=== PATIENT | female | born 1930 | race Caucasian/White ===

== ENCOUNTER 2017-06-22 14:26 | Outpatient (CLI) | payer MEDICARE | END 2017-06-22 14:27 | disposition home or self-care (01) | LOC: BICULT 14:26 | PROVIDERS: ATTEND Internal Medicine Nephrology | DX: I12.9 Hypertensive chronic kidney disease with stage 1 through stage 4 chronic kidney disease, or unspecified chronic kidney disease (principal); N18.2 Chronic kidney disease, stage 2 (mild); N28.1 Cyst of kidney, acquired | CPT/HCPCS: 76700; 76770 ==

== ENCOUNTER 2017-06-29 12:37 | Outpatient (CLI) | payer MEDICARE | END 2017-06-29 12:38 | disposition home or self-care (01) | LOC: BICMAMMO 12:37 | PROVIDERS: ATTEND Internal Medicine | DX: Z12.31 Encounter for screening mammogram for malignant neoplasm of breast (principal) | CPT/HCPCS: 77063; 77067 ==

== ENCOUNTER 2017-07-19 10:45 | Emergency (ER) | payer MEDICARE ==
[2017-07-19] MEDS ORDERED: Acetaminophen 325 MG TAB ONE (12:05)
[2017-07-19] MEDS ORDERED: ISOVUE-370 76%-LOCM 1 ML ONE (12:12)
[2017-07-19 12:24] LABS: #Eosinphils 0.1 thou/uL (0.0-0.7); #Lymphocytes 1.8 thou/uL (1.20-3.40); #Monocytes 0.9 thou/uL (0.11-0.59); #Neutrophils 7.4 thou/uL (1.40-6.50); %Basophils 0.1 % (0.0-1.0); %Eosinophils 0.8 % (0.0-10.0); %Monocytes 8.7 % (0.0-10.0); %Neutrophils 72.4 % (42.0-75.0); Hemoglobin 10.8 g/dL (12.0-16.0); Mean Corpuscular HGB CONC 32.1 g/dL (32.0-36.0); Mean Corpuscular Hemoglobin 26.1 pg (27.0-31.0); Mean Corpuscular Volume 81.3 fl (81.0-99.0); Mean Platelet Volume 6.4 fL (7.4-10.4); Platelet Count 326 thou/uL (130-400); RBC Distribution Width 16.2 % (11.5-14.5); Red Blood Cell (RBC) Count 4.13 mill/uL (4.20-5.40); White Blood Cell (WBC) Count 10.2 thou/uL (4.8-10.8)
[2017-07-19 12:39] LABS: Bilirubin Negative (Negative); Blood, Urine Negative (Negative); Clarity CLEAR (Clear); Glucose, Urine (Dipstick) Negative (Negative); Leukocyte Moderate (Negative); Nitrite Negative (Negative); Protein, Urine (Dipstick) Negative (Neg-Trace); Urobilinogen 0.2 mg/dL (0.2-1.0); pH, Urine 7.5 (5.0-9.0)
[2017-07-19 12:41] LABS: Bacteria/HPF Rare-Few HPF (None Seen); Hyaline Casts/LPF 0-3 HYALINE CAST LPF (0-3 Hyaline); Pathc Cast-AUWi Flag 0.43 (0-2.49); RBC/HPF 0-3 HPF (0-3); Squamous Epithelial 0-3 HPF (0-3)
[2017-07-19 12:50] LABS: ALT (SGPT) 8 U/L (8-55); AST (SGOT) 12 U/L (5-34); Albumin 3.8 g/dL (3.4-4.8); Alkaline Phosphatase 87 U/L (40-150); Anion Gap 13 mmol/L (10-20); BUN (Urea Nitrogen) 11 mg/dL (9.8-20.1); Bilirubin, Total 0.4 mg/dL (0.2-1.2); Calc. Creatinine Clearance 0 mL/min (70-130); Calcium 9.3 mg/dL (7.8-10.44); Carbon Dioxide 27 mmol/L (23-31); Chloride 100 mmol/L (98-107); Estimated GFR-MDRD 85; Globulin 2.7 g/dL (2.4-3.5); Glucose 99 mg/dL (83-110); Lipase 9 U/L (8-78); Potassium 3.9 mmol/L (3.5-5.1); Protein, Total 6.5 g/dL (6.0-8.3); Sodium 136 mmol/L (136-145)
[2017-07-19] MEDS ORDERED: cefTRIAXone\\ROCEPHIN 1 GM VIAL ONE (13:23)
--- NOTE | 2017-07-19 14:08 | CT ---
CT ABDOMEN AND PELVIS WITH CONTRAST: Comparison: None. History: Left flank pain that started this morning. Technique: Multiple contiguous axial images were obtained in a CT of the abdomen and pelvis with cont rast. Coronal reformats were performed. FINDINGS: There are hypodensities in the liver measuring up to 1.8 cm in size which likely represent cysts. Hyp odensities are also seen in the kidneys which likely represents cysts. There is mild prominence of th e proximal right ureter without caliceal dilatation. No left sided hydronephrosis is seen. No calcifi cation is seen in either kidney or along the course of the ureters. There is a calcification within a venous structure adjacent to the right ureter on image 49 of 95. The ureter is just lateral to this calcification. There is scattered diverticula in the colon. The small bowel is unremarkable. No abdominal or pelvic lymphadenopathy are seen. Atherosclerotic calcifications are seen in the aorta. Degenerative changes are seen in the spine. Atelectasis is seen in the lung bases. The lateral wall s oft tissues are unremarkable. There is a spinal stimulation device with the tip in the thoracic spine . IMPRESSION: 1. No evidence of acute intraabdominal/pelvic abnormality. 2. Hepatic cysts. 3. Renal cysts. 4. Scattered diverticulosis in the colon. The small bowel is unremarkable. POS: [facility]
== END 2017-07-19 14:56 | disposition home or self-care (01) ==
LOC: ERS 10:45
DX: N39.0 Urinary tract infection, site not specified (principal); E78.5 Hyperlipidemia, unspecified; I10 Essential (primary) hypertension; J44.9 Chronic obstructive pulmonary disease, unspecified; Z87.891 Personal history of nicotine dependence
CPT/HCPCS: 36415; 74177; 80053; 81003; 81015; 83605; 83690; 85025; 87086; 96361; 96365; J0696

== ENCOUNTER 2017-12-19 01:39 | Inpatient (IN) | payer MEDICARE ==
[2017-12-19 02:17] LABS: #Basophils 0.1 thou/uL (0.0-0.2); #Eosinphils 0.3 thou/uL (0.0-0.7); #Lymphocytes 2.9 thou/uL (1.20-3.40); #Monocytes 0.7 thou/uL (0.11-0.59); #Neutrophils 9.3 thou/uL (1.40-6.50); %Basophils 0.5 % (0.0-1.0); %Eosinophils 2.3 % (0.0-10.0); %Monocytes 5.1 % (0.0-10.0); Hemoglobin 11.2 g/dL (12.0-16.0); Mean Corpuscular Hemoglobin 25.4 pg (27.0-31.0); Mean Platelet Volume 6.6 fL (7.4-10.4); Platelet Count 493 thou/uL (130-400); RBC Distribution Width 15.6 % (11.5-14.5); Red Blood Cell (RBC) Count 4.39 mill/uL (4.20-5.40); White Blood Cell (WBC) Count 13.3 thou/uL (4.8-10.8)
[2017-12-19 02:39] LABS: ALT (SGPT) 11 U/L (8-55); AST (SGOT) 18 U/L (5-34); Albumin 3.6 g/dL (3.4-4.8); Alkaline Phosphatase 94 U/L (40-150); Anion Gap 15 mmol/L (10-20); BUN (Urea Nitrogen) 17 mg/dL (9.8-20.1); Bilirubin, Total 0.3 mg/dL (0.2-1.2); Calc. Creatinine Clearance 0 mL/min (70-130); Calcium 9.4 mg/dL (7.8-10.44); Carbon Dioxide 22 mmol/L (23-31); Chloride 102 mmol/L (98-107); Estimated GFR-MDRD 48; Globulin 2.9 g/dL (2.4-3.5); Glucose 157 mg/dL (83-110); Lipase 43 U/L (8-78); Potassium 3.6 mmol/L (3.5-5.1); Protein, Total 6.5 g/dL (6.0-8.3); Sodium 135 mmol/L (136-145)
[2017-12-19 02:41] LABS: Troponin I Less than 0.010 ng/mL (< 0.028)
[2017-12-19 03:03] LABS: Bilirubin Negative (Negative); Blood, Urine Negative (Negative); Clarity CLEAR (Clear); Glucose, Urine (Dipstick) Negative (Negative); Leukocyte Small (Negative); Nitrite Negative (Negative); Protein, Urine (Dipstick) Trace mg/dL (Neg-Trace); Specific Gravity, Urine 1.016 (1.002-1.036); Urobilinogen 0.2 mg/dL (0.2-1.0); pH, Urine 7.5 (5.0-9.0)
[2017-12-19 03:05] LABS: Bacteria/HPF 3+ HPF (None Seen); Hyaline Casts/LPF 0-3 HYALINE CAST LPF (0-3 Hyaline); Pathc Cast-AUWi Flag 0.14 (0-2.49); RBC/HPF 0-3 HPF (0-3); Squamous Epithelial 0-3 HPF (0-3)
[2017-12-19] MEDS ORDERED: Nitrofurantoin Macrocrystal 50 MG CAP PO SCH (03:45)
[2017-12-19] MEDS ORDERED: cefTRIAXone\\ROCEPHIN 2 GM VIAL ONE (04:04)
[2017-12-19] MEDS ORDERED: metroNIDAZOLE 500 MG/100 ML BAG ONE (04:18)
[2017-12-19] MEDS ORDERED: traMADol HCl 50 MG TAB ONE (04:32)
[2017-12-19 04:43] LABS: Lactic Acid 2.5 mmol/L (0.5-2.2)
[2017-12-19] MEDS ORDERED: Acetaminophen 325 MG TAB PO PRN ×2 (05:56→08:05)
[2017-12-19] MEDS ORDERED: Ondansetron ODT 4 MG TAB SL PRN (05:56)
[2017-12-19] MEDS ORDERED: Ondansetron HCl/PF 4 MG/2 ML Vial IVP PRN ×2 (05:56→08:05)
[2017-12-19 06:23] VITALS: BMI 23.8
[2017-12-19] MEDS ORDERED: Senokot S 8.6-50 MG TAB PO PRN (08:05)
[2017-12-19] MEDS ORDERED: Calcium Carbonate 500 MG ChewTAB PO PRN (08:05)
[2017-12-19] MEDS ORDERED: Diabetic Tussin 200 MG/10 ML UDCUP PO PRN (08:05)
[2017-12-19] MEDS ORDERED: Sodium Chloride 0.65% Nasal 44 ML BOT EA NARE PRN (08:05)
[2017-12-19] MEDS ORDERED: Eucerin (Mineral Oil/Petrolatum,White) 30 gm Jar TOP PRN (08:05)
[2017-12-19] MEDS ORDERED: Loperamide HCl 2 MG CAP PO PRN (08:05)
[2017-12-19] MEDS ORDERED: hydrALAZINE 20 MG/ML VIAL SLOW IVP PRN (08:05)
[2017-12-19] MEDS ORDERED: Bisacodyl 5 MG TAB PO PRN (08:05)
[2017-12-19] MEDS ORDERED: Bisacodyl 10 MG SUPP PR PRN (08:05)
[2017-12-19] MEDS ORDERED: Ondansetron ODT 4 MG TAB PO PRN (08:05)
[2017-12-19] MEDS ORDERED: Artificial Tears 18 DROP/0.9 ML EA EYE PRN (08:05)
[2017-12-19] MEDS ORDERED: Zolpidem Tartrate 5 MG TAB PO PRN (08:05)
[2017-12-19] MEDS ORDERED: Sodium Chloride 0.9% 1,000 ML IV SCH (08:15)
--- NOTE | 2017-12-19 08:52 | CT ---
PRELIMINARY REPORT/[facility]/EMERGENTY AFTER-HOURS PROCEDURE CT Abdomen and Pelvis With Intravenous Contrast EXAM DATE/TIME: 12/19/2017 3:06 AM CLINICAL HISTORY: 87 years old, female; Pain; Abdominal pain; Generalized; Patient HX: History obtained from ems, f86 p resents to ed via ems for abdominal cramping and difficulty having a bm tonight. Per ems, PT was foun d on the toilet and complained of being unable to have a bm. PT states she called ems because her abdominal pain made her scared to get up from the toilet. Denies nausea, vomiting, dysuria. PT al so reports that her urine has been dark. 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 HX HTN, diabetes. TECHNIQUE: Axial computed tomography images of the abdomen and pelvis with intravenous contrast. Coronal reformatted images were created and reviewed. COMPARISON: No relevant prior studies available. FINDINGS: Tubes, catheters and devices: Spinal stimulator. Lower thorax: Small paraesophageal hiatal hernia. ABDOMEN: Liver: 1.4 cm and couple of subcentimeter nonspecific low attenuation lesions in the right hepatic lo be. Gallbladder and bile ducts: Unremarkable. Pancreas: Unremarkable. Spleen: Unremarkable. Adrenals: Unremarkable. Kidneys and ureters: 1 cm cyst and couple of bilateral low attenuation lesions too small to character ize. Couple of probable small vascular calcifications. Symmetric nephrograms. No hydronephrosis. Stomach and bowel: Diverticulosis. Fluid-filled ascending and transverse colon with relatively promin ent mucosal enhancement. No significant surrounding inflammatory changes noted. No evidence of obstru ction. Appendix: No evidence of appendicitis. PELVIS: Bladder: Unremarkable as visualized. Reproductive: Hysterectomy. ABDOMEN and PELVIS: Intraperitoneal space: No significant fluid collection. No free air. Bones/joints: Total left hip arthroplasty. Levoscoliosis and diffuse spondylosis and facet arthrosis. Soft tissues: Unremarkable. Vasculature: Dense atherosclerotic calcifications. Lymph nodes: No enlarged lymph nodes. IMPRESSION: Fluid filled proximal colon with relative mucosal prominence may represent mild colitis. Thank you for allowing us to participate in the care of your patient. Dictated and Authenticated by: Chandan Montenegro MD 12/19/2017 3:52 AM Central Time ([place] & [place]) FINAL REPORT EMERGENCY AFTER HOURS CT ABDOMEN AND PELVIS: Date: 12/19/17 FINDINGS/IMPRESSION: I agree with the preliminary report provided by [facility]. 1. There is wall thickening and fluid density seen within portions of the hepatic flexure, transvers e colon, and splenic flexure, suspicious for a colitis. This can be related to an infectious, inflamm atory, or ischemic etiology. 2. Stable hypodensities within the liver most suspicious for cysts. Stable hypodensities within the kidneys most suspicious for small cysts. No drainable fluid collection is evident. 3. Colonic diverticulosis. 4. Bibasilar atelectasis. 5. Dorsal column stimulator. 6. Left total hip replacement. 7. Severe levoscoliosis of the lumbar spine with diffuse osteopenia. POS: [facility]
--- NOTE | 2017-12-19 09:08 | RAD ---
CHEST 1 VIEW: Date: 12/19/17 HISTORY: Abdominal cramping. COMPARISON: 06/28/16. FINDINGS: Portable upright chest demonstrates dorsal column stimulator, incompletely evaluated. Atherosclerosis of aorta. Normal cardiac silhouette. Chronic changes in lung parenchyma. No consolidation or mass. N o pneumothorax or osseous abnormalities. Stable scoliotic curvature of the thoracic spine and upper lumbar spine. IMPRESSION: 1. Atherosclerosis. 2. No acute cardiopulmonary process. POS: [facility]
[2017-12-19] MEDS: Enoxaparin Sodium 40 MG/0.4 ML SYRINGE SC SCH (09:55)
[2017-12-19] MEDS: Saccharomyces boulardii 250 MG CAP PO SCH (09:55)
[2017-12-19] MEDS: Polyethylene Glycol 3350 17 GM Packet PO SCH (09:55)
[2017-12-19] MEDS: Famotidine 20 MG TAB PO SCH ×2 (09:55→20:25)
[2017-12-19] MEDS ORDERED: traMADol HCl 50 MG TAB PO PRN (11:04)
[2017-12-19] MEDS ORDERED: Fluticasone Propionate Nasal Spray 16 gm Bottle NASAL PRN ×2 (11:04→11:15)
--- NOTE | 2017-12-19 11:47 | HP ---
PRIMARY CARE PHYSICIAN: City call admission. REASON FOR ADMISSION: Acute colitis, urinary tract infection. HISTORY OF PRESENT ILLNESS: An 87-year-old female who lives by herself at home. She came to emergen cy room with complaint of abdominal pain. Patient reports that she was lately constipated. Last nig ht, she went to bathroom and she was trying to have bowel movement, but she was not having any bowel movement. She started having crampy abdominal pain. She was not able to get out of the toilet. She was feeling very weak, dizzy, lightheaded. Paramedics were called and patient was found relatively hypotensive. She appeared clinically dehydrated. The patient was given IV fluid and subsequently th e patient was brought to emergency room for evaluation. When the patient arrived to emergency room, she was tachycardic, relatively hypotensive, but afebrile . She had CT of the abdomen and pelvis, which showed colitis. Her urinalysis was also consistent wi th urinary tract infection. The patient was given IV fluid and antibiotic therapy and subsequently s he was admitted to telemetry floor. The patient did not have any chest pain, palpitation, dizziness. She did not have any melena, hematochezia. She denies any hematemesis. She denies any vomiting, b ut her appetite was lately reduced and poor. She did not have any fall related injury. She denies a ny fall as well. REVIEW OF SYSTEMS: The following complete review of systems was negative, unless otherwise mentioned in the HPI or below: Constitutional: Weight loss or gain, ability to conduct usual activities. Skin: Rash, itching. Eyes: Double vision, pain. ENT/Mouth: Nose bleeding, neck stiffness, pain, tenderness. Cardiovascular: Palpitations, dyspnea on exertion, orthopnea. Respiratory: Shortness of breath, wheezing, cough, hemoptysis, fever or night sweats. Gastrointestinal: Poor appetite, abdominal pain, heartburn, nausea, vomiting, constipation, or diarr hea. Genitourinary: Urgency, frequency, dysuria, nocturia. Musculoskeletal: Pain, swelling. Neurologic/Psychiatric: Anxiety, depression. Allergy/Immunologic: Skin rash, bleeding tendency. Please see my HPI for pertinent positive and negative. All other review of systems reviewed and nega tive except as mentioned in the HPI. EMERGENCY ROOM COURSE: Patient is given Cipro 400 mg IV, Flagyl 500 mg IV, IV fluid, DuoNeb therapy, tramadol 50 mg, Macrobid 100 mg. PAST MEDICAL HISTORY: Osteoarthritis, COPD, hypertension, hypothyroidism, gastroesophageal reflux di sease, chronic neuropathic pain, osteoarthritis. PAST SURGICAL HISTORY: Tonsillectomy, appendicectomy, hysterectomy, bilateral knee surgery, left hip replacement, finger surgery, back surgery, right wrist surgery, cataract surgery. PAST PSYCHIATRIC HISTORY: Anxiety and depression. SOCIAL HISTORY: The patient reports that she lives alone by herself. She is a former smoker. She q uit smoking more than 10 years ago. She drinks alcohol occasionally. She ambulates with a walker. FAMILY HISTORY: No strong family history of coronary artery disease, stroke or cancer. ALLERGIES: CODEINE. CURRENT HOME MEDICATIONS: Aspirin 81 mg p.o. daily, atenolol 25 mg p.o. b.i.d., Lipitor 10 mg p.o. a t bedtime, vitamin D3 2000 units p.o. daily, vitamin B12 2500 mcg p.o. daily, Cymbalta 60 mg p.o. zonia ly, Nexium 40 mg p.o. daily, Flonase nasal spray daily, Lasix 40 mg p.o. daily, gabapentin 300 mg p.o . t.i.d., Prinzide 20/12.5 one tablet p.o. daily, metformin 500 mg p.o. b.i.d., Ocuvite 1 tablet p.o. daily, oxybutynin 5 mg p.o. at bedtime, perphenazine with amitriptyline 1 tablet p.o. at bedtime, Ar mour Thyroid 15 mg p.o. daily, tramadol 50 mg q.i.d. p.r.n., coenzyme Q10 200 mg p.o. daily. PHYSICAL EXAMINATION: VITAL SIGNS: On arrival, blood pressure 107/37, pulse 111, respiratory rate 16, temperature 97.8, sa turation 92% on room air, weight 57.6 kilograms. GENERAL: Patient is alert, awake, chronically ill, no obvious acute distress. HEENT: Head: Normocephalic, atraumatic. Eyes: Pupils round, reactive to light. Extraocular muscl e intact. ENT: Oropharynx within normal limits. Moist mucous membranes. No oral lesion, no pharyn geal erythema, no exudate. NECK: Supple, no JVD, no thyromegaly, no carotid bruit, no jugular venous distention. LUNGS: Clear to auscultation without any rhonchi or rales. CARDIAC: S1, S2 appears regular, slight tachycardia. Soft systolic murmur noted. No gallop, no rub . ABDOMEN: Patient has a diffuse tenderness, but no peritoneal sign, no guarding, no rigidity, no rebo und. BACK: Unremarkable, no CVA tenderness. EXTREMITIES: Upper extremity, passive movement of all joints are normal. Lower extremity, no edema . Good distal pulsation. Varicose vein noted. NEUROLOGIC: Nonfocal examination. She moves all 4 limbs. Her speech is normal. Nonfocal neurologi porsche examination. SKIN: No skin rash. PSYCHIATRIC: Normal affect. HEMATOLOGIC: No lymphadenopathy. SIGNIFICANT LABORATORY DATA AND IMAGIN. EKG showing normal sinus rhythm, nonspecific ST-T changes, LVH. 2. CT of the abdomen and pelvis suggestive of small paraesophageal hiatal hernia, spinal stimulator in place. Findings suggestive of colitis. 3. CBC: WBC 13.3, hemoglobin 11.2, platelet 493. BMP: Sodium 135, potassium 3.6, chloride 102, ca rbon dioxide 22, BUN 17, creatinine 1.08, glucose 157, calcium 9.4. Lactic acid 2.5. 4. LFT: AST 18, ALT 11, alkaline phosphatase 94, albumin 3.6, lipase 43, CK-MB 1.0, troponin I less than 0.010. Urinalysis suggestive of UTI. ASSESSMENT AND PLAN: 1. Acute colitis. This patient has leukocytosis, lactic acidosis and diffuse lower abdominal pain, suspected for ischemic colitis given constipation, less likely to be infectious etiology given no cale rrhea, and no hematochezia. We will check stool for guaiac and we will try to send stool for C. diff . Gastroenterology will be consulted. The patient will be treated empirically with Cipro 400 mg IV q.12 hourly and Flagyl 500 mg IV q.8 hourly. We will continue with IV fluid. 2. Urinary tract infection. We will send urine culture and patient is already on Cipro 400 mg IV q. 12 hours. Depending upon culture, we will change antibiotic therapy accordingly. 3. Lactic acidosis, probably related with problem #1. We will repeat lactic acid tomorrow. The pat ient also clinically appears dehydrated. 4. Chronic obstructive pulmonary disease. We will continue DuoNeb therapy q.6 hourly p.r.n. basis. 5. Hypertension. If blood pressure permits, then we will continue atenolol 25 mg p.o. b.i.d., Prinz josephine 21/02.5 one tablet p.o. daily. 6. Dyslipidemia. Continue Lipitor 10 mg p.o. at bedtime. 7. Anxiety and depression. Continue Cymbalta 60 mg p.o. daily, perphenazine and amitriptyline 1 tab let p.o. at bedtime. 8. Hypothyroidism. We will continue [place] Thyroid 15 mg p.o. daily. 9. Peripheral neuropathy. Continue gabapentin 300 mg p.o. t.i.d. 10. Gastroesophageal reflux disease. We will continue Pepcid 20 mg p.o. b.i.d. 11. Deep venous thrombosis prophylaxis. Lovenox 40 mg subcu daily. 12. Gastrointestinal prophylaxis, Pepcid 20 mg p.o. b.i.d. 13. CODE STATUS: The patient is FULL CODE. Patient does not have any surrogate decision maker at t his point. Disposition plan based on clinical course. We are expecting patient's stay in hospital more than 2 m idnights. This patient does not need any graduate civil engineer and that is why we will transfer her to [facility]. PT, OT will be consulted and we will evaluate for any [facility] home or rehabilitation plac ement upon discharge if needed. Plan of care discussed with the patient in detail.
[2017-12-19] MEDS: metroNIDAZOLE 500 MG in Premix Bag 1 BAG IVPB SCH ×2 (13:30→23:19)
[2017-12-19] MEDS: Sodium Chloride 0.9% 1,000 ML IV SCH ×2 (13:31→22:35)
--- NOTE | 2017-12-19 14:02 | PQF ---
DATE: 12-19-17 ATTN: DR. AUSTIN ORDONEZ / DR. LETI GUPTA Please exercise your independent, professional judgment in responding to the clarification form. Clinical indicators are provided on the bottom of this form for your review Please check appropriate box(es): [ x ] Sepsis due to: (UTI, ACUTE COLITIS, etc.) [ ] Localized infection without sepsis [ ] Other diagnosis [ ] Unable to determine In addition, please specify: Present on Admission (POA): [ x ] Yes [ ] No [ ] Unable to determine For continuity of documentation, please document condition throughout progress notes and discharge summary. Thank You. CLINICAL INDICATORS - SIGNS / SYMPTOMS / LABS LACTIC ACID: 12-19-17: 2.5 WBC: 13.3 PULSE: ER: 111, 102, 109, 106 12-19-17: 114, 107, 113, 108 H&P: PARAMEDICS WERE CALLED AND PT WAS FOUND RELATIVELY HYPOTENSIVE H&P: ACUTE COLITIS, UTI, LACTIC ACIDOSIS RISK FACTORS: H&P: ACUTE COLITIS, UTI, LACTIC ACIDOSIS ADVANCED AGE TREATMENTS: ER: CIPRO IV, NS X2, FLAGYL IV MAR: CIPRO IV, IVF, FLAGYL (This form is maintained as a part of the permanent medical record) 2014 [employer] All Rights Reserved [email or web address] [email or web address] Office: [phone] [facility]
[2017-12-19] MEDS: Gabapentin 300 MG CAP PO SCH ×2 (14:50→20:25)
[2017-12-19] MEDS ORDERED: ISOVUE-370 76%-LOCM 1 ML ONE (16:04)
[2017-12-19] MEDS: metFORMIN 500 MG TAB PO SCH (17:54)
[2017-12-19] MEDS: Atenolol 25 MG TAB PO SCH (20:24)
[2017-12-19] MEDS: Amitriptyline HCl 25 MG TAB PO SCH (20:25)
[2017-12-19] MEDS: Atorvastatin Calcium 10 MG TAB PO SCH (20:25)
[2017-12-19] MEDS: Oxybutynin 5 MG TAB PO SCH (20:29)
[2017-12-19] MEDS ORDERED: AMITRIPTYLINE HCL PO SCH (21:00)
[2017-12-19] MEDS ORDERED: PERPHENAZINE PO SCH (21:00)
[2017-12-19] MEDS ORDERED: Oxybutynin 5 MG TAB PO SCH (21:00)
[2017-12-19] MEDS ORDERED: [UNRECOGNIZED DRUG - OTHER] PO SCH (21:00)
--- NOTE | 2017-12-19 23:16 | CON ---
DATE OF CONSULTATION: 12/19/2017 CHIEF COMPLAINT: Abdominal pain. HISTORY OF PRESENT ILLNESS: Ms. Douglas is an 87-year-old woman who lives at home alone who came to the emergency room with weakness yesterday. She was tired and lightheaded. She was found by paramedics to have hypotension and she was transferred to the emergency room where she was given fluids. She did report some abdominal pain. She states currently that she has had some chronic diffuse aching abdominal pain for years that is currently unchanged. She has had no nausea or vomiting. She did have an episode or two of diarrhea last night, but no further stool output today. She has been tolerating liquids well today. She was found to have a urinary tract infection and elevated lactate level on presentation. She also had a CT scan performed in the emergency room last night that showed fluid in the proximal colon with some mucosal prominence. No significant inflammatory stranding was noted. PAST MEDICAL HISTORY: COPD, hypertension, hypothyroidism, osteoarthritis, diverticulosis, chronic neuropathic pain for which she takes gabapentin and osteoarthritis. PAST SURGICAL HISTORY: Tonsillectomy, appendectomy, hysterectomy, knee surgery , hip surgery, back surgery, wrist surgery, cataract surgery. She had EGD and colonoscopy in 07/2016 that showed severe diverticulosis in the left colon. She had a mild esophageal stricture that was dilated with an otherwise normal esophagogastroduodenoscopy. FAMILY HISTORY: Negative for GI malignancy. SOCIAL HISTORY: She quit smoking in 1981. No drugs or alcohol. ALLERGIES: CODEINE. MEDICATIONS: Prior to admission include aspirin, atenolol, Lipitor, vitamin D, vitamin B12, Cymbalta, Nexium, Lasix, Flonase, Ocuvite, oxybutynin, amitriptyline, thyroid medication, tramadol, coenzyme Q10, gabapentin. REVIEW OF SYSTEMS: Negative x10 systems reviewed except as stated in the history of present illness. PHYSICAL EXAMINATION: VITAL SIGNS: Temperature 98.0, pulse 113, blood pressure 143/75. GENERAL: She is in no acute distress. She is awake and oriented x3 now. I did wake her up on my initial exam and she was slow to wake up and slow to answer questions at that point, but once she was adequately stimulated, she was oriented fully. HEENT: Her eyes have no scleral icterus. OROPHARYNX: Clear, without lesions. NECK: No cervical or supraclavicular lymphadenopathy. LUNGS: Clear to auscultation bilaterally. HEART: Heart is tachycardic, S1, S2 without murmurs. ABDOMEN: Soft. She has slight tenderness in the left side of the abdomen without guarding. Bowel sounds are present. EXTREMITIES: No lower extremity edema. LABORATORY DATA: White blood cell count 13.3, hemoglobin 11.2, platelets 493, creatinine 1.08. Lactic acid yesterday was 2.5, lipase 43. LFTs were normal. IMPRESSION: 1. Possible mild infectious colitis with a couple of episodes of diarrhea yesterday and some chronic diffuse abdominal aching and mild tenderness. CT showed increased fluid in the right colon and mucosal prominence. Nothing to suggest a more severe colitis at this time. CT findings are do highly suggest a distribution suggestive of ischemic colitis, but this is possilbe. Either way , treatment is supportive and fluids. 2. Urinary tract infection and dehydration on presentation. RECOMMENDATIONS: 1. Advance diet. 2. If she has further diarrhea, then obtain stool studies. She has had no diarrhea today. 3. Her last colonoscopy was in 07/2016 and was negative except for left-sided diverticulosis. 4. Continue supportive care from a GI standpoint. I will sign off for now. Please call if GI can be of assistance. [place]
[2017-12-20] MEDS: Perphenazine 2 MG TAB PO SCH ×2 (01:11→20:12)
[2017-12-20 04:11] LABS: #Eosinphils 0.3 thou/uL (0.0-0.7); #Lymphocytes 1.6 thou/uL (1.20-3.40); #Monocytes 0.7 thou/uL (0.11-0.59); #Neutrophils 7.5 thou/uL (1.40-6.50); %Basophils 0.4 % (0.0-1.0); %Eosinophils 3.1 % (0.0-10.0); %Lymphocytes 15.9 % (21.0-51.0); %Monocytes 6.7 % (0.0-10.0); %Neutrophils 73.9 % (42.0-75.0); Hemoglobin 8.5 g/dL (12.0-16.0); Mean Corpuscular Hemoglobin 25.1 pg (27.0-31.0); Mean Corpuscular Volume 81.1 fL (78.0-98.0); Mean Platelet Volume 6.3 fL (7.4-10.4); Platelet Count 348 thou/uL (130-400); RBC Distribution Width 15.5 % (11.5-14.5); Red Blood Cell (RBC) Count 3.38 mill/uL (4.20-5.40); White Blood Cell (WBC) Count 10.1 thou/uL (4.8-10.8)
[2017-12-20 04:23] LABS: Lactic Acid 1.3 mmol/L (0.5-2.2)
[2017-12-20 04:28] LABS: ALT (SGPT) 9 U/L (8-55); AST (SGOT) 13 U/L (5-34); Albumin 2.7 g/dL (3.4-4.8); Alkaline Phosphatase 68 U/L (40-150); Anion Gap 9 mmol/L (10-20); BUN (Urea Nitrogen) 15 mg/dL (9.8-20.1); Bilirubin, Total 0.3 mg/dL (0.2-1.2); Calc. Creatinine Clearance 51 mL/min (70-130); Calcium 8.1 mg/dL (7.8-10.44); Carbon Dioxide 26 mmol/L (23-31); Chloride 104 mmol/L (98-107); Estimated GFR-MDRD 77; Globulin 2.4 g/dL (2.4-3.5); Glucose 117 mg/dL (83-110); Protein, Total 5.1 g/dL (6.0-8.3); Sodium 135 mmol/L (136-145)
[2017-12-20] MEDS: Thyroid 30 MG TAB PO SCH (05:24)
[2017-12-20] MEDS: metroNIDAZOLE 500 MG in Premix Bag 1 BAG IVPB SCH ×3 (05:25→21:26)
[2017-12-20] MEDS ORDERED: THYROID PORK 15 MG PO SCH (06:00)
[2017-12-20] MEDS: Saccharomyces boulardii 250 MG CAP PO SCH (08:13)
[2017-12-20] MEDS: Aspirin 81 mg Enteric Coated Tablet PO SCH (08:13)
[2017-12-20] MEDS: DULoxetine 60 MG CAP PO SCH (08:13)
[2017-12-20] MEDS: metFORMIN 500 MG TAB PO SCH ×2 (08:14→16:16)
[2017-12-20] MEDS: Atenolol 25 MG TAB PO SCH ×2 (08:14→20:12)
[2017-12-20] MEDS: Famotidine 20 MG TAB PO SCH ×2 (08:14→20:13)
[2017-12-20] MEDS: Gabapentin 300 MG CAP PO SCH ×3 (08:14→20:13)
[2017-12-20] MEDS: Enoxaparin Sodium 40 MG/0.4 ML SYRINGE SC SCH (08:15)
[2017-12-20] MEDS: Cyanocobalamin (Vitamin B-12) 1,000 MCG TAB PO SCH (08:17)
[2017-12-20] MEDS: Polyethylene Glycol 3350 17 GM Packet PO SCH (08:19)
[2017-12-20] MEDS: Multivit, Therapeutic 1 TAB PO SCH (08:19)
[2017-12-20] MEDS ORDERED: CYANOCOBALAMIN PO SCH (09:00)
[2017-12-20] MEDS ORDERED: Non-Formulary Item 1 EACH (Multivit-Min/Iron/Folic/Lutein [Centrum Silver Women] 1 TAB) PO SCH (09:00)
[2017-12-20] MEDS ORDERED: Non-Formulary Item 1 EACH (Cholecalciferol (Vitamin D3) [Vitamin D3] 1,000 UNIT) PO SCH (09:00)
[2017-12-20] MEDS ORDERED: Non-Formulary Item 1 EACH (Ubidecarenone [Co Q-10] 200 MG) PO SCH (09:00)
--- NOTE | 2017-12-20 10:58 | PDOC.PN ---
- Subjective Encounter Start Date: 12/20/17 Encounter Start Time: 08:30 -: old records requested/rev Patient seen and examined. No new complaints. No overnight events - Objective Resuscitation Status: Resuscitation Status FULL:Full Resuscitation MAR Reviewed: Yes Vital Signs & Weight: Vital Signs (12 hours) Temp Pulse Pulse Resp BP BP BP 12/20/17 08:14 71 141/66 H 12/20/17 08:00 12/20/17 07:57 97.3 F L 71 18 141/66 H 12/20/17 07:45 76 141/66 H 12/20/17 07:07 12/20/17 04:00 98.0 F 73 20 12/20/17 00:00 98.3 F 85 20 BP Pulse Ox Pulse Ox 12/20/17 08:14 12/20/17 08:00 95 12/20/17 07:57 95 12/20/17 07:45 95 12/20/17 07:07 96 12/20/17 04:00 101/66 96 12/20/17 00:00 110/69 94 L Weight Weight 126 lb 2 oz I&O: 12/19/17 12/20/17 12/21/17 06:59 06:59 06:59 Intake Total 1060 Balance 1060 Result Diagrams: 12/20/17 03:52 12/20/17 03:52 Phys Exam - Physical Examination Constitutional: NAD HEENT: PERRLA, moist MMs, sclera anicteric Neck: no JVD, supple Respiratory: no wheezing, no rales, no rhonchi Cardiovascular: RRR, no significant murmur, no rub Gastrointestinal: soft, non-tender, no distention, positive bowel sounds Musculoskeletal: no edema, pulses present Neurological: non-focal, normal sensation Psychiatric: normal affect, A&O x 3 Skin: no rash, normal turgor Dx/Plan (1) Colitis Code(s): K52.9 - NONINFECTIVE GASTROENTERITIS AND COLITIS, UNSPECIFIED Status : Acute (2) Lactic acidosis Code(s): E87.2 - ACIDOSIS Status: Resolved (3) UTI (urinary tract infection) Status: Acute (4) Anemia, normocytic normochromic Code(s): D64.9 - ANEMIA, UNSPECIFIED Status: Chronic (5) Anxiety and depression Code(s): F41.9 - ANXIETY DISORDER, UNSPECIFIED; F32.9 - MAJOR DEPRESSIVE DISORDER, SINGLE EPISODE, UNSPECIFIED Status: Chronic (6) Diabetes type 2, controlled Code(s): E11.9 - TYPE 2 DIABETES MELLITUS WITHOUT COMPLICATIONS Status: Chronic (7) Dyslipidemia Code(s): E78.5 - HYPERLIPIDEMIA, UNSPECIFIED Status: Chronic (8) GERD (gastroesophageal reflux disease) Code(s): K21.9 - GASTRO-ESOPHAGEAL REFLUX DISEASE WITHOUT ESOPHAGITIS Status: Chronic (9) Hypertension Code(s): I10 - ESSENTIAL (PRIMARY) HYPERTENSION Status: Chronic (10) Hypothyroidism Code(s): E03.9 - HYPOTHYROIDISM, UNSPECIFIED Status: Chronic (11) Chronic pain disorder Code(s): G89.4 - CHRONIC PAIN SYNDROME Status: Chronic - Plan cont current plan of care, continue antibiotics, PT/OT * continue empiric cipro and flagyl * DC IVF * pt is improving * await stool work up, follow urine culture * start PT * expecting discharge soon * medication reviewed as below * symptomatic treatment. Review of Systems - Review of Systems ENT: negative: Ear Pain, Ear Discharge, Nose Pain, Nose Discharge, Nose Congestion, Mouth Pain, Mouth Swelling, Throat Pain, Throat Swelling, Other Respiratory: negative: Cough, Dry, Shortness of Breath, Hemoptysis, SOB with Excertion, Pleuritic Pain, Sputum, Wheezing Cardiovascular: negative: chest pain, palpitations, orthopnea, paroxysmal nocturnal dyspnea, edema, light headedness, other Gastrointestinal: negative: Nausea, Vomiting, Abdominal Pain, Diarrhea, Constipation, Melena, Hematochezia, Other Genitourinary: negative: Dysuria, Frequency, Incontinence, Hematuria, Retention , Other Musculoskeletal: negative: Neck Pain, Shoulder Pain, Arm Pain, Back Pain, Hand Pain, Leg Pain, Foot Pain, Other - Medications/Allergies Allergies/Adverse Reactions: Allergies Allergy/AdvReac Type Severity Reaction Status Date / Time codeine Allergy Verified 02/04/15 17:44 Medications: Current Medications Acetaminophen (Tylenol) 650 mg PO Q4H PRN PRN Reason: Headache/Fever/Mild Pain (1-3) Amitriptyline HCl (Elavil) 25 mg PO HS DANIELLA Last Admin: 12/19/17 20:25 Dose: 25 mg Artificial Tears (Tears Naturale) 2 drop EA EYE PRN PRN PRN Reason: Dry Eyes Aspirin (Ecotrin) 81 mg PO DAILY [facility] Last Admin: 12/20/17 08:13 Dose: 81 mg Atenolol (Tenormin) 25 mg PO BID [facility] Last Admin: 12/20/17 08:14 Dose: 25 mg Atorvastatin Calcium (Lipitor) 10 mg PO HS [facility] Last Admin: 12/19/17 20:25 Dose: 10 mg Bisacodyl (Dulcolax) 10 mg [place] DAILYPRN PRN PRN Reason: Constipation Bisacodyl (Dulcolax) 10 mg PO DAILYPRN PRN PRN Reason: Constipation Calcium Carbonate (Tums) 1,000 mg PO Q4H PRN PRN Reason: Heartburn or Indigestion Cholecalciferol (Vitamin D3) 1,000 units PO DAILY [facility] Last Admin: 12/20/17 08:15 Dose: 1,000 units Coenzyme Q10 (Coenzyme Q10) 200 mg PO DAILY [facility] Cyanocobalamin (Vitamin B-12) 2,500 mcg PO DAILY [facility] Last Admin: 12/20/17 08:17 Dose: 2,500 mcg Duloxetine HCl (Cymbalta) 60 mg PO DAILY [facility] Last Admin: 12/20/17 08:13 Dose: 60 mg Enoxaparin Sodium (Lovenox) 40 mg SC 0900 [facility] Last Admin: 12/20/17 08:15 Dose: 40 mg Famotidine (Pepcid) 20 mg PO BID [facility] Last Admin: 12/20/17 08:14 Dose: 20 mg Fluticasone Propionate (Flonase Nasal [place]) 0 gm NASAL DAILY PRN PRN Reason: Congestion Gabapentin (Neurontin) 300 mg PO TID [facility] Last Admin: 12/20/17 08:14 Dose: 300 mg Guaifenesin (Robitussin Sf) 200 mg PO Q4H PRN PRN Reason: Cough Lisinopril/HCTZ (Prinizide 20-12.5) 1 tab PO DAILY [facility] Hydralazine HCl (Apresoline) 10 mg SLOW IVP Q4H PRN PRN Reason: SBP > 180 and HR < 70 Metronidazole 500 mg/ Device 100 mls @ 100 mls/hr IVPB Q8HR [facility] Last Admin: 12/20/17 05:25 Dose: 100 mls Ciprofloxacin/Dextrose 400 mg/ (Device) 200 mls @ 200 mls/hr IVPB Q12HR [facility] Last Admin: 12/20/17 08:12 Dose: 200 mls Loperamide HCl (Imodium) 2 mg PO PRN PRN PRN Reason: Diarrhea/Loose Stools Metformin HCl (Glucophage) 500 mg PO BID-[facility] Last Admin: 12/20/17 08:14 Dose: 500 mg Mineral Oil/White Petrolatum (Eucerin Cream) 0 gm TOP BIDPRN PRN PRN Reason: Dry Skin Multivitamins (Theragran) 1 tab PO DAILY [facility] Last Admin: 12/20/17 08:19 Dose: 1 tab Ondansetron HCl (Zofran Odt) 4 mg PO Q6H PRN PRN Reason: Nausea/Vomiting Ondansetron HCl (Zofran) 4 mg IVP Q6H PRN PRN Reason: Nausea/Vomiting Oxybutynin Chloride (Ditropan) 5 mg PO HS [facility] Last Admin: 12/19/17 20:29 Dose: 5 mg Perphenazine (Trilafon) 2 mg PO [facility] Last Admin: 12/20/17 01:11 Dose: 2 mg Polyethylene Glycol (Miralax) 17 gm PO DAILY [facility] Last Admin: 12/20/17 08:19 Dose: Not Given Saccharomyces Boulardii (Florastor) 250 mg PO DAILY [facility] Last Admin: 12/20/17 08:13 Dose: 250 mg Senna/Docusate Sodium (Senokot S) 2 tab PO BID PRN PRN Reason: Constipation Sodium Chloride (Flush - Normal Saline) 10 ml IVF Q12HR [facility] Last Admin: 12/20/17 08:19 Dose: Not Given Sodium Chloride (Flush - Normal Saline) 10 ml IVF PRN PRN PRN Reason: Saline Flush Sodium Chloride ([place] Nasal [place] 0.65%) 0 ml EA NARE QIDPRN PRN PRN Reason: Nasal Congestion Thyroid ([place] Thyroid) 15 mg PO 0600 [facility] Last Admin: 12/20/17 05:24 Dose: 15 mg Tramadol HCl (Ultram) 50 mg PO QIDPRN PRN PRN Reason: Pain Last Admin: 12/19/17 18:19 Dose: 50 mg Zolpidem Tartrate (Ambien) 5 mg PO HSPRN PRN PRN Reason: Insomnia
[2017-12-20] MEDS: Lisinopril/Hydrochlorothiazide 20 mg/12.5 mg Tablet PO SCH (16:15)
[2017-12-20] MEDS: Ubidecarenone 50 MG CAP PO SCH (16:16)
[2017-12-20] MEDS: Amitriptyline HCl 25 MG TAB PO SCH (20:13)
[2017-12-20] MEDS: Oxybutynin 5 MG TAB PO SCH (20:13)
[2017-12-20] MEDS: Atorvastatin Calcium 10 MG TAB PO SCH (20:13)
[2017-12-21] MEDS: Thyroid 30 MG TAB PO SCH (05:30)
[2017-12-21] MEDS: metroNIDAZOLE 500 MG in Premix Bag 1 BAG IVPB SCH (05:30)
[2017-12-21] MEDS: metFORMIN 500 MG TAB PO SCH (08:12)
[2017-12-21] MEDS: Aspirin 81 mg Enteric Coated Tablet PO SCH (08:12)
[2017-12-21] MEDS: Atenolol 25 MG TAB PO SCH (08:12)
[2017-12-21] MEDS: DULoxetine 60 MG CAP PO SCH (08:13)
[2017-12-21] MEDS: Multivit, Therapeutic 1 TAB PO SCH (08:13)
[2017-12-21] MEDS: Cyanocobalamin (Vitamin B-12) 1,000 MCG TAB PO SCH (08:13)
[2017-12-21] MEDS: Polyethylene Glycol 3350 17 GM Packet PO SCH (08:14)
[2017-12-21] MEDS: Famotidine 20 MG TAB PO SCH (08:14)
[2017-12-21] MEDS: Saccharomyces boulardii 250 MG CAP PO SCH (08:14)
[2017-12-21] MEDS: Lisinopril/Hydrochlorothiazide 20 mg/12.5 mg Tablet PO SCH (08:14)
[2017-12-21] MEDS: Enoxaparin Sodium 40 MG/0.4 ML SYRINGE SC SCH (08:14)
[2017-12-21] MEDS: Gabapentin 300 MG CAP PO SCH (08:14)
[2017-12-21] MEDS: Ubidecarenone 50 MG CAP PO SCH (08:15)
--- NOTE | 2017-12-21 10:24 | PDOC.PN ---
- Subjective Encounter Start Date: 12/21/17 Encounter Start Time: 08:50 Patient seen and examined. No new complaints. No overnight events - Objective Resuscitation Status: Resuscitation Status FULL:Full Resuscitation MAR Reviewed: Yes Vital Signs & Weight: Vital Signs (12 hours) Temp Pulse Resp BP BP Pulse Ox 12/21/17 08:14 70 170/69 H 12/21/17 08:12 70 170/69 H 93 L 12/21/17 07:51 97.9 F 70 18 170/69 H 93 L 12/21/17 07:13 93 L Weight Admit Weight 126 lb 2 oz Weight 126 lb 2 oz I&O: 12/20/17 12/21/17 12/22/17 06:59 06:59 06:59 Intake Total 1060 1720 Output Total 100 Balance 1060 1620 Result Diagrams: 12/20/17 03:52 12/20/17 03:52 Phys Exam - Physical Examination Constitutional: NAD HEENT: PERRLA, moist MMs, sclera anicteric Neck: no JVD, supple Respiratory: no wheezing, no rales, no rhonchi Cardiovascular: RRR, no significant murmur, no rub Gastrointestinal: soft, non-tender, no distention, positive bowel sounds Musculoskeletal: no edema, pulses present Neurological: non-focal, normal sensation, moves all 4 limbs Psychiatric: normal affect, A&O x 3 Skin: no rash, normal turgor Dx/Plan (1) Colitis Code(s): K52.9 - NONINFECTIVE GASTROENTERITIS AND COLITIS, UNSPECIFIED Status : Acute (2) Lactic acidosis Code(s): E87.2 - ACIDOSIS Status: Resolved (3) UTI (urinary tract infection) Status: Acute (4) Anemia, normocytic normochromic Code(s): D64.9 - ANEMIA, UNSPECIFIED Status: Chronic (5) Anxiety and depression Code(s): F41.9 - ANXIETY DISORDER, UNSPECIFIED; F32.9 - MAJOR DEPRESSIVE DISORDER, SINGLE EPISODE, UNSPECIFIED Status: Chronic (6) Diabetes type 2, controlled Code(s): E11.9 - TYPE 2 DIABETES MELLITUS WITHOUT COMPLICATIONS Status: Chronic (7) Dyslipidemia Code(s): E78.5 - HYPERLIPIDEMIA, UNSPECIFIED Status: Chronic (8) GERD (gastroesophageal reflux disease) Code(s): K21.9 - GASTRO-ESOPHAGEAL REFLUX DISEASE WITHOUT ESOPHAGITIS Status: Chronic (9) Hypertension Code(s): I10 - ESSENTIAL (PRIMARY) HYPERTENSION Status: Chronic (10) Hypothyroidism Code(s): E03.9 - HYPOTHYROIDISM, UNSPECIFIED Status: Chronic (11) Chronic pain disorder Code(s): G89.4 - CHRONIC PAIN SYNDROME Status: Chronic - Plan cont current plan of care, continue antibiotics * medication reviewed as below * symptomatic treatment * see discharge summernancy. Review of Systems - Review of Systems ENT: negative: Ear Pain, Ear Discharge, Nose Pain, Nose Discharge, Nose Congestion, Mouth Pain, Mouth Swelling, Throat Pain, Throat Swelling, Other Respiratory: negative: Cough, Dry, Shortness of Breath, Hemoptysis, SOB with Excertion, Pleuritic Pain, Sputum, Wheezing Cardiovascular: negative: chest pain, palpitations, orthopnea, paroxysmal nocturnal dyspnea, edema, light headedness, other Gastrointestinal: negative: Nausea, Vomiting, Abdominal Pain, Diarrhea, Constipation, Melena, Hematochezia, Other Genitourinary: negative: Dysuria, Frequency, Incontinence, Hematuria, Retention , Other Musculoskeletal: negative: Neck Pain, Shoulder Pain, Arm Pain, Back Pain, Hand Pain, Leg Pain, Foot Pain, Other Skin: negative: Rash, Lesions, Gustavo, Bruising, Other - Medications/Allergies Allergies/Adverse Reactions: Allergies Allergy/AdvReac Type Severity Reaction Status Date / Time codeine Allergy Verified 02/04/15 17:44 Medications: Current Medications Acetaminophen (Tylenol) 650 mg PO Q4H PRN PRN Reason: Headache/Fever/Mild Pain (1-3) Amitriptyline HCl (Elavil) 25 mg PO HS [facility] Last Admin: 12/20/17 20:13 Dose: 25 mg Artificial Tears (Tears Naturale) 2 drop EA EYE PRN PRN PRN Reason: Dry Eyes Aspirin (Ecotrin) 81 mg PO DAILY [facility] Last Admin: 12/21/17 08:12 Dose: 81 mg Atenolol (Tenormin) 25 mg PO BID [facility] Last Admin: 12/21/17 08:12 Dose: 25 mg Atorvastatin Calcium (Lipitor) 10 mg PO HS [facility] Last Admin: 12/20/17 20:13 Dose: 10 mg Bisacodyl (Dulcolax) 10 mg [place] DAILYPRN PRN PRN Reason: Constipation Bisacodyl (Dulcolax) 10 mg PO DAILYPRN PRN PRN Reason: Constipation Calcium Carbonate (Tums) 1,000 mg PO Q4H PRN PRN Reason: Heartburn or Indigestion Cholecalciferol (Vitamin D3) 1,000 units PO DAILY [facility] Last Admin: 12/21/17 08:12 Dose: 1,000 units Coenzyme Q10 (Coenzyme Q10) 200 mg PO DAILY [facility] Last Admin: 12/21/17 08:15 Dose: 200 mg Cyanocobalamin (Vitamin B-12) 2,500 mcg PO DAILY [facility] Last Admin: 12/21/17 08:13 Dose: 2,500 mcg Duloxetine HCl (Cymbalta) 60 mg PO DAILY [facility] Last Admin: 12/21/17 08:13 Dose: 60 mg Enoxaparin Sodium (Lovenox) 40 mg SC 0900 [facility] Last Admin: 12/21/17 08:14 Dose: 40 mg Famotidine (Pepcid) 20 mg PO BID [facility] Last Admin: 12/21/17 08:14 Dose: 20 mg Fluticasone Propionate (Flonase Nasal [place]) 0 gm NASAL DAILY PRN PRN Reason: Congestion Gabapentin (Neurontin) 300 mg PO TID [facility] Last Admin: 12/21/17 08:14 Dose: 300 mg Guaifenesin (Robitussin Sf) 200 mg PO Q4H PRN PRN Reason: Cough Lisinopril/HCTZ (Prinizide 20-12.5) 1 tab PO DAILY [facility] Last Admin: 12/21/17 08:14 Dose: 1 tab Hydralazine HCl (Apresoline) 10 mg SLOW IVP Q4H PRN PRN Reason: SBP > 180 and HR < 70 Metronidazole 500 mg/ Device 100 mls @ 100 mls/hr IVPB Q8HR [facility] Last Admin: 12/21/17 05:30 Dose: 100 mls Ciprofloxacin/Dextrose 400 mg/ (Device) 200 mls @ 200 mls/hr IVPB Q12HR [facility] Last Admin: 12/21/17 08:52 Dose: Not Given Loperamide HCl (Imodium) 2 mg PO PRN PRN PRN Reason: Diarrhea/Loose Stools Metformin HCl (Glucophage) 500 mg PO BID-[facility] Last Admin: 12/21/17 08:12 Dose: 500 mg Mineral Oil/White Petrolatum (Eucerin Cream) 0 gm TOP BIDPRN PRN PRN Reason: Dry Skin Multivitamins (Theragran) 1 tab PO DAILY [facility] Last Admin: 12/21/17 08:13 Dose: 1 tab Ondansetron HCl (Zofran Odt) 4 mg PO Q6H PRN PRN Reason: Nausea/Vomiting Ondansetron HCl (Zofran) 4 mg IVP Q6H PRN PRN Reason: Nausea/Vomiting Oxybutynin Chloride (Ditropan) 5 mg PO HS [facility] Last Admin: 12/20/17 20:13 Dose: 5 mg Perphenazine (Trilafon) 2 mg PO HS [facility] Last Admin: 12/20/17 20:12 Dose: 2 mg Polyethylene Glycol (Miralax) 17 gm PO DAILY [facility] Last Admin: 12/21/17 08:14 Dose: 17 gm Saccharomyces Boulardii (Florastor) 250 mg PO DAILY [facility] Last Admin: 12/21/17 08:14 Dose: 250 mg Senna/Docusate Sodium (Senokot S) 2 tab PO BID PRN PRN Reason: Constipation Sodium Chloride (Flush - Normal Saline) 10 ml IVF Q12HR [facility] Last Admin: 12/21/17 08:16 Dose: 10 ml Sodium Chloride (Flush - Normal Saline) 10 ml IVF PRN PRN PRN Reason: Saline Flush Sodium Chloride ([place] Nasal [place] 0.65%) 0 ml EA NARE QIDPRN PRN PRN Reason: Nasal Congestion Thyroid ([place] Thyroid) 15 mg PO 0600 [facility] Last Admin: 12/21/17 05:30 Dose: 15 mg Tramadol HCl (Ultram) 50 mg PO QIDPRN PRN PRN Reason: Pain Last Admin: 12/19/17 18:19 Dose: 50 mg Zolpidem Tartrate (Ambien) 5 mg PO HSPRN PRN PRN Reason: Insomnia
--- NOTE | 2017-12-21 10:54 | DIS ---
PRIMARY CARE PHYSICIAN: [facility] call admission. DATE OF ADMISSION: 12/19/2017 DATE OF DISCHARGE: 12/21/2017 DISCHARGE DISPOSITION: Home. PRIMARY DISCHARGE DIAGNOSES: 1. Nonspecific colitis. 2. Urinary tract infection. 3. Lactic acidosis. SECONDARY DISCHARGE DIAGNOSES: Hypothyroidism, hypertension, and gastroesophageal reflux disease, dy slipidemia, diabetes type 2, chronic pain disorder, anxiety and depression, normocytic anemia. PRIMARY PROCEDURE/OPERATION: None. RADIOLOGICAL INVESTIGATION: Abdomen and pelvis CT scan showed findings suggestive of colitis. Chest x-ray normal. SIGNIFICANT LABORATORY DATA: WBC 10.1, hemoglobin 8.5, platelet 348. Sodium 135, creatinine 0.72. Lactic acid 1.3. LFT normal. Urinalysis suggestive of UTI. Stool for infection workup came back sheila armando. Blood culture negative. Urine culture negative. DISCHARGE MEDICATIONS: Cipro 250 mg p.o. b.i.d. for 5 days, aspirin 81 mg p.o. daily, atenolol 25 mg p.o. b.i.d., Lipitor 10 mg p.o. at bedtime, vitamin D3 of 2000 units p.o. daily, vitamin B12 of 2500 mcg p.o. daily, Nexium 40 mg p.o. daily, Flonase nasal spray daily, Lasix 40 mg p.o. daily, gabapent in 300 mg p.o. t.i.d., Prinzide 20/12.5 one tablet p.o. daily, metformin 500 mg p.o. b.i.d., multivit stiles 1 tablet p.o. daily, oxybutynin 5 mg p.o. at bedtime, perphenazine, amitriptyline 1 tablet p.o. at bedtime, [place] Thyroid 15 mg p.o. daily, tramadol 50 mg q.i.d. p.r.n., coenzyme Q10 of 200 mg p.o . daily. CONTRAINDICATIONS: None. CODE STATUS: FULL CODE. INPATIENT CONSULTANTS: Dr. Roldan Argueta was consulted while in hospital. TEST RESULTS PENDING ON DISCHARGE: None. ALLERGIES: CODEINE. DISCHARGE PLAN: Post hospital, the patient is instructed to make appointment with primary care physi obi in 1 week. HOSPITAL COURSE: An 87-year-old female with above-mentioned medical problem who was admitted by me piedad schmitt 12/19/2017. Please see my HPI for further details. The patient presented to emergency room with c omplaint of abdominal pain, nausea, and vomiting. The patient was clinically [facility]ated[facility] the abdomen and pelvis which showed nonspecific colitis. Her urinalysis w as suggestive of UTI. Patient was admitted to medical floor for colitis and UTI, GI team was consult ed and they did not have any new recommendations. We did stool for infection workup that came back n egative. Patient was hydrated with IV fluid while in hospital. She was completely asymptomatic whil e in hospital. The patient is seen and examined at bedside today. Please see my progress note from today for furthe r details. On discharge, we prescribed 5 days of Cipro. She will make appointment with primary care physician.
[2017-12-21 12:24] VITALS: BP 159/64; TEMP 97.7
== END 2017-12-21 12:26 | disposition home or self-care (01) | DRG 872 ==
LOC: ERS 01:39 → 2NO 04:10 → T4-B 12:08
PROVIDERS: ADMIT Internal Medicine; ATTEND Internal Medicine
DX: A41.9 Sepsis, unspecified organism (principal); N39.0 Urinary tract infection, site not specified; E87.2 Acidosis; K52.9 Noninfective gastroenteritis and colitis, unspecified; E86.0 Dehydration; F41.9 Anxiety disorder, unspecified; F32.9 Major depressive disorder, single episode, unspecified; M19.90 Unspecified osteoarthritis, unspecified site; J44.9 Chronic obstructive pulmonary disease, unspecified; I10 Essential (primary) hypertension; E03.9 Hypothyroidism, unspecified; K21.9 Gastro-esophageal reflux disease without esophagitis; E78.5 Hyperlipidemia, unspecified; D64.9 Anemia, unspecified; E11.42 Type 2 diabetes mellitus with diabetic polyneuropathy; G89.4 Chronic pain syndrome; Z79.84 Long term (current) use of oral hypoglycemic drugs; Z79.82 Long term (current) use of aspirin; Z87.891 Personal history of nicotine dependence; Z96.642 Presence of left artificial hip joint
CPT/HCPCS: 36415; 51701; 71045; 74177; 80053; 81003; 81015; 82553; 83605; 83690; 84484; 85025; 87040; 87045; 87046; 87076; 87086; 87177; 87449; 87899; 90471; 90662; 93005; 94640; 94760; 96365; A4353; G0008; G8978-GP-CJ; G8979-GP-CJ; G8980-GP-CJ; G8987-GO-CJ; G8988-GO-CI; J0696; J0744; J1650; J7620; Q0175

== ENCOUNTER 2018-08-01 15:51 | Outpatient (CLI) | payer MEDICARE ==
--- NOTE | 2018-08-01 16:39 | MMO ---
Bilateral MAMMO Bilat Screen [facility]. CLINICAL HISTORY: Patient is 88 years old and is seen for screening. The patient has the following family history of breast cancer: daughter, at age 60. VIEWS: The views performed were: bilateral craniocaudal with tomosynthesis and bilateral mediolateral oblique with tomosynthesis. FILMS COMPARED: The present examination has been compared to prior imaging studies performed at [facility] on 06/29/2017, and at [facility] on 12/01/2013, 05/18/2015 and 06/28/2016. MAMMOGRAM FINDINGS: There are scattered fibroglandular densities. Benign calcifications are noted bilaterally. There are no suspicious masses, suspicious calcifications, or new areas of architectural distortion. IMPRESSION: THERE IS NO MAMMOGRAPHIC EVIDENCE OF MALIGNANCY. A ROUTINE FOLLOW-UP MAMMOGRAM IN 1 YEAR IS RECOMMENDED. THE RESULTS OF THIS EXAM WERE SENT TO THE PATIENT. ACR BI-RADS Category 2 - Benign finding MAMMOGRAPHY NOTE: 1. A negative mammogram report should not delay a biopsy if a dominant of clinically suspicious mass is present. 2. Approximately 10% to 15% of breast cancers are not detected by mammography. 3. Adenosis and dense breasts may obscure an underlying neoplasm.
== END 2018-08-01 15:52 | disposition home or self-care (01) ==
LOC: BICMAMMO 15:51
PROVIDERS: ATTEND Internal Medicine
DX: Z12.31 Encounter for screening mammogram for malignant neoplasm of breast (principal); Z80.3 Family history of malignant neoplasm of breast
CPT/HCPCS: 77063; 77067

== ENCOUNTER 2018-12-01 16:22 | Inpatient (IN) | payer MEDICARE ==
[2018-12-01] MEDS ORDERED: Morphine 2 MG/ML SYRINGE ONE (17:23)
--- NOTE | 2018-12-01 18:17 | RAD ---
RIGHT FEMUR FOUR VIEWS: Indication: Right leg pain after fall. FINDINGS: No acute fracture or subluxation is evident. Suspected enthesopathic change seen off the ischial tube rosity. Vascular calcifications within the soft tissues. 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 Ther e is joint capsular distention within the right knee. IMPRESSION: No acute osseous abnormality. Capsular distention in the right knee. POS: BH
--- NOTE | 2018-12-01 18:41 | RAD ---
RIGHT KNEE FOUR VIEWS: Indication: Fall with right knee pain. Comparison: None. FINDINGS: There is a right total knee prosthesis that projects in the expected position. There is nonspecific j oint capsular distention. IMPRESSION: Joint capsular distention. Right total knee prosthesis projecting in the expected position. POS: BH
[2018-12-01 19:16] LABS: Bilirubin Negative (Negative); Blood, Urine 1+ (Negative); Clarity Turbid (Clear); Glucose, Urine (Dipstick) Normal (Negative); Leukocyte 500 Leu/uL (Negative); Nitrite Negative (Negative); Protein, Urine (Dipstick) 30 mg/dL (Neg-Trace); Urobilinogen Normal mg/dL (Less than 2)
[2018-12-01 19:17] LABS: #Basophils 0.1 thou/uL (0.0-0.2); #Eosinphils 0.2 thou/uL (0.0-0.7); #Lymphocytes 1.9 thou/uL (1.20-3.40); #Monocytes 0.8 thou/uL (0.11-0.59); %Basophils 0.4 % (0.0-1.0); %Eosinophils 1.1 % (0.0-10.0); %Lymphocytes 11.7 % (21.0-51.0); %Neutrophils 81.9 % (42.0-75.0); Hemoglobin 13.4 g/dL (12.0-16.0); Mean Corpuscular Hemoglobin 31.3 pg (27.0-31.0); Mean Corpuscular Volume 92.2 fL (78.0-98.0); Mean Platelet Volume 6.4 fL (7.4-10.4); Platelet Count 333 thou/uL (130-400); RBC Distribution Width 12.4 % (11.5-14.5); Red Blood Cell (RBC) Count 4.27 mill/uL (4.20-5.40); White Blood Cell (WBC) Count 15.9 thou/uL (4.8-10.8)
[2018-12-01 19:23] LABS: Bacteria/HPF 1+ HPF (None Seen); RBC/HPF 0-3 HPF (0-3); Renal Epithelial 0-3 HPF (None Seen); Squamous Epithelial 0-3 HPF (0-3); WBC/HPF Greater Than 50 HPF (0-3)
[2018-12-01 19:36] LABS: ALT (SGPT) 13 U/L (8-55); AST (SGOT) 17 U/L (5-34); Alkaline Phosphatase 81 U/L (40-110); Anion Gap 13 mmol/L (10-20); BUN (Urea Nitrogen) 11 mg/dL (9.8-20.1); Bilirubin, Total 0.5 mg/dL (0.2-1.2); Calc. Creatinine Clearance 0 mL/min (70-130); Carbon Dioxide 24 mmol/L (23-31); Chloride 97 mmol/L (98-107); Estimated GFR-MDRD 78; Globulin 2.3 g/dL (2.4-3.5); Glucose 100 mg/dL (83-110); Potassium 4.7 mmol/L (3.5-5.1); Protein, Total 6.3 g/dL (6.0-8.3); Sodium 129 mmol/L (136-145)
[2018-12-01 19:59] LABS: CKMB 3.4 ng/mL (0-6.6)
--- NOTE | 2018-12-01 20:22 | CT ---
CT OF THE RIGHT KNEE WITHOUT CONTRAST: Indication: History of fall, right knee pain. FINDINGS: There is a nondisplaced vertically oriented fracture involving the posteromedial aspect of the medial femoral condyle. This likely does extend down to the level of the posteromedial aspect of the femora l prosthesis. There is diffuse osteopenia. There is a moderate size lipohemarthrosis. No additional f racture is grossly evident. IMPRESSION: 1. Nondisplaced vertically oriented fracture involving the posteromedial aspect of the medial femoral condyle, likely extending into the posteromedial aspect of the distal femoral prosthesis. There is n o overt evidence to suggest prosthetic loosening. 2. Lipohemarthrosis. 3. Diffuse osteopenia. POS: BH
[2018-12-01 21:43] LABS: Magnesium 1.7 mg/dL (1.6-2.6); Phosphorus 3.7 mg/dL (2.3-4.7)
[2018-12-01 22:46] LABS: Troponin I 0.123 ng/mL (< 0.028)
--- NOTE | 2018-12-01 23:53 | CON ---
DATE OF CONSULTATION: 12/01/2018 CHIEF COMPLAINT: Right knee pain. HISTORY OF PRESENT ILLNESS: Ms. Douglas is a pleasant 88-year-old female, who is status post ground level fall. She lives in assisted living facility. The patient states she ambulates within the house, but does not ambulate outside the house because of instability. She rates her pain as 5 to 6 out of 10. She is currently comfortable in her bed. PAST MEDICAL HISTORY: Hyperlipidemia, hypertension, osteoarthritis, chronic COPD. 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 ALLERGIES: CODEINE. MEDICATIONS: 1. Atenolol. 2. Tramadol. 3. Gabapentin. 4. Fluoxetine. 5. Amitriptyline. 6. Myrbetriq. 7. Furosemide. 8. Hydrocodone. 9. Atorvastatin. 10. Pilocarpine. 11. [place] Thyroid. 12. Nexium. SOCIAL HISTORY: The patient lives alone. Nonsmoker, nondrinker. No alcohol. Basically, she quit smoking 10 years ago. The patient has recently moved to [place] to be near closer to her family. REVIEW OF SYSTEMS: Noncontributory. PHYSICAL EXAMINATION: VITAL SIGNS: Most recent vital signs were blood pressure 185/63, pulse 66, respiratory rate 17, temperature 97.5, oxygen saturation 96% on room air. GENERAL: Alert and oriented female, in no acute distress, resting comfortably in bed. EXTREMITIES: Right lower extremity, the patient has right knee effusion. Tenderness along the medial epicondyle. She had about 1+ valgus instability. The patient has zero to about 40 degrees of flexion. She has some pain with motion. She is neurovascularly intact distally with brisk capillary refill. She has gross sensation intact. She wiggle her toes and good capillary refill. IMAGING: Radiographs show a nondisplaced medial femoral condyle fracture confirmed by CT scan with an all-poly tibia. IMPRESSION: Nondisplaced vertical shear medial condyle fracture. ASSESSMENT AND PLAN: The patient will need admission for social disposition. My plan at this time is nonoperative management. I do not feel that it involves enough of the condyle to treat this surgically. There is no intra-articular extension. It is only in the medial aspect. To appropriately buttress, it would need a medial plate, which I think has some untoward risks. I do not think the percutaneous screws would hold the fixation in an 88-year-old bones. Therefore, I think nonoperative management likely the best choice, keep her knee immobilizer for 2 weeks, keep her nonweightbearing for 12, begin range of motion, next followup, but it will take a period of time to let this heal. The patient will be admitted to Medicine and be followed in-house by Orthopedics. Job ID: [id number]
--- NOTE | 2018-12-02 01:39 | PDOC.HHP ---
Hospitalist HPI - History of Present Illness Fall, back pain, R knee pain History of Present Illness: 88 year old female with PMH HTN, arthritis, COPD who presents to ED for mechanical fall while walking to bathroom this morning. Uses a walker and chronic R hip pain caused her to fall, she reports she fell onto her right knee directly. Has history of bilateral knee replacement, left hip replacement, chronic sciatica. Sees pain doctor Silas (PCP Dr Schultz). Denies hitting head or losing consciousness. Son reported in ED that surgeon in [facility]. Imaging revealed nondisplaced fracture of femur above right prosthetic knee on CT. Dr Rowan of orthopedics consulted in ED and declared case nonsurgical and ED recommended admission to [facility] service. Patient to be admitted, I discussed with Dr Hernandez. Hospitalist ROS - Review of Systems Constitutional: denies: fever, chills, sweats, weakness, malaise, other Eyes: denies: pain, vision change, conjunctivae inflammation, eyelid inflammation, redness, other ENT: denies: ear pain, ear discharge, nose pain, nose discharge, nose congestion , mouth pain, mouth swelling, throat pain, throat swelling, other Respiratory: denies: cough, dry, shortness of breath, hemoptysis, SOB with excertion, pleuritic pain, sputum, wheezing, other Cardiovascular: denies: chest pain, palpitations, orthopnea, paroxysmal noc. dyspnea, edema, light headedness, other Gastrointestinal: denies: nausea, vomiting, abdominal pain, diarrhea, constipation, melena, hematochezia, other Genitourinary: denies: dysuria, frequency, incontinence, hematuria, retention, other Musculoskeletal: reports: neck pain, shoulder pain, other (chronic neck, shoulder, hip pain) Skin: denies: rash, lesions, marissa, bruising, other Neurological: denies: weakness, numbness, incoordination, change in speech, confusion, seizures, other All other systems reviewed; all pertinent +/- noted in HPI/Subj - Medication Medications: atenolol [place] Dec 01, 2018 17:10 YAEL Pickering Shelley TABLET : Strength - 50 mg : ORAL Patient Dose: 1 tab(s) Oral. traMADol [place] Dec 01, 2018 17:13 YAEL Pickering Shelley TABLET : Strength - 50 mg : ORAL Patient Dose: 1 tab(s) Oral 3 times a day. gabapentin SunDec 01, 2018 17:13 YAEL Pickering Shelley TABLET : Strength - 600 mg : ORAL Patient Dose: 300 mg Oral 3 times a day. DULoxetine SunDec 01, 2018 17:14 YAEL Pickering Shelley CAPSULE,DELAYED RELEASE ( ENTERIC COATED) : Strength - 60 mg : ORAL Patient Dose: 60 mg Oral once a day. perphenazine-amitriptyline SunDec 01, 2018 17:15 YAEL Pickering Shelley TABLET : Strength - 2 mg-25 mg : ORAL Patient Dose: 1 tab(s) Oral. Myrbetriq SunDec 01, 2018 17:16 YAEL Pickering Shelley TABLET, EXTENDED RELEASE 24 HR : Strength - 25 mg : ORAL Patient Dose: 25 mg Oral once a day. furosemide SunDec 01, 2018 17:16 YAEL Pickering Shelley TABLET : Strength - 40 mg : ORAL Patient Dose: 40 mg Oral once a day. HYDROcodone-acetaminophen SunDec 01, 2018 17:16 YAEL Pickering Shelley TABLET : Strength - 10 mg-325 mg : ORAL Patient Dose: 10/325 mg Oral every 6 hours PRN. atorvastatin SunDec 01, 2018 17:17 YAEL Pickering Shelley TABLET : Strength - 10 mg : ORAL Patient Dose: 10 mg Oral once a day. pilocarpine HCl SunDec 01, 2018 17:17 YAEL Pickering Shelley TABLET : Strength - 5 mg : ORAL Patient Dose: 5 mg Oral 3 times a day. Conway Thyroid SunDec 01, 2018 17:18 YAEL Pickering Shelley TABLET : Strength - 90 mg : ORAL Patient Dose: 90 mg Oral once a day. NexIUM SunDec 01, 2018 17:18 YAEL Pickering Shelley CAPSULE,DELAYED RELEASE ( ENTERIC COATED) : Strength - 20 mg : ORAL Patient Dose: 20 mg Oral once a day. Hospitalist History - Past Medical History Other Medical History: hyperlipidemia, hypertension, musculoskeletal disorder, osteoarthritis, Past medical history includes pulmonary disease, chronic obstructive pulmonary disease. - Past Surgical History Other Surgical History: Surgical history of tonsillectomy, Surgical history of appendectomy, Surgical history of hysterectomy, Surgical history of orthopedic surgery, bilateral knee. Left hip replacement. FINGER SURGERY, BACK SURGERY. R WRIST SURGERY. CATARACT SURGERY. - Family History Family History: reports: no pertinent history - Social History Other Social History: Patient drinks socially, rarely, Patient is a former tobacco user, Patient quit smoking more than 10 years ago. - Exam General Appearance: NAD, awake alert Eye: PERRL, anicteric sclera ENT: normocephalic atraumatic, no oropharyngeal lesions, moist mucosa Neck: supple, symmetric, no JVD, no thyromegaly, no lymphadenopathy, no carotid bruit Heart: RRR, no murmur, no gallops, no rubs, normal peripheral pulses Respiratory: CTAB, no wheezes, no rales, no ronchi, normal chest expansion, no tachypnea, normal percussion Gastrointestinal: soft, non-tender, non-distended, normal bowel sounds, no palpable masses, no hepatomegaly, no splenomegaly, no bruit Extremities: no cyanosis, no clubbing, no edema Neurological: cranial nerve grossly intact, normal sensation to touch, no weakness, no focal deficits, no new deficit Musculoskeletal: normal tone, normal strength, no muscle wasting Psychiatric: normal affect, normal behavior, A&O x 3 Hospitalist Results - Labs Result Diagrams: 12/01/18 19:09 12/01/18 19:09 Lab results: WBC 15.9 thou/uL (4.8-10.8) H 12/01/18 19:09 Hgb 13.4 g/dL (12.0-16.0) 12/01/18 19:09 Hct 39.4 % (36.0-47.0) 12/01/18 19:09 MCV 92.2 fL (78.0-98.0) 12/01/18 19:09 Plt Count 333 thou/uL (130-400) 12/01/18 19:09 Neutrophils % 81.9 % (42.0-75.0) H 12/01/18 19:09 Sodium 129 mmol/L (136-145) L 12/01/18 19:09 Potassium 4.7 mmol/L (3.5-5.1) 12/01/18 19:09 Chloride 97 mmol/L (98-107) L 12/01/18 19:09 Carbon Dioxide 24 mmol/L (23-31) 12/01/18 19:09 BUN 11 mg/dL (9.8-20.1) 12/01/18 19:09 Creatinine 0.71 mg/dL (0.6-1.1) 12/01/18 19:09 Glucose 100 mg/dL (83-110) 12/01/18 19:09 Calcium 9.0 mg/dL (7.8-10.44) 12/01/18 19:09 Total Bilirubin 0.5 mg/dL (0.2-1.2) 12/01/18 19:09 AST 17 U/L (5-34) 12/01/18 19:09 ALT 13 U/L (8-55) 12/01/18 19:09 Alkaline Phosphatase 81 U/L (40-110) 12/01/18 19:09 CK-MB (CK-2) 3.4 ng/mL (0-6.6) 12/01/18 19:09 Troponin I 0.123 ng/mL (< 0.028) H 12/01/18 22:15 Serum Total Protein 6.3 g/dL (6.0-8.3) 12/01/18 19:09 Albumin 4.0 g/dL (3.4-4.8) 12/01/18 19:09 Urine Ketones 10 mg/dL (Negative) A 12/01/18 19:00 Urine Blood 1+ (Negative) A 12/01/18 19:00 Urine Nitrite Negative (Negative) 12/01/18 19:00 Ur Leukocyte Esterase 500 Peter/uL (Negative) A 12/01/18 19:00 Urine RBC 0-3 HPF (0-3) 12/01/18 19:00 Urine WBC Greater Than 50 HPF (0-3) A 12/01/18 19:00 Ur Squamous Epith Cells 0-3 HPF (0-3) 12/01/18 19:00 Urine Bacteria 1+ HPF (None Seen) 12/01/18 19:00 Additional comment: VITAL SIGNS Sun Dec 01, 2018 22:43 YAEL Pickering Shelley BP: 184/74, Pulse: 63, Resp: 20, Pain: 5calm, O2 sat: 95 on Room Air, Time: 12/01/2018 22:43. Hospitalist H&P A/P - Problem (1) Femur fracture Code(s): S72.90XA - UNSP FRACTURE OF UNSP FEMUR, INIT ENCNTR FOR CLOSED FRACTURE Status: Acute Assessment and Plan: appreciate surgical evalaution of nondisplaced femur fracture by Dr Rowan. Nonsurgical management, case management consulted for placement and rehab, PT/ Ot ordered (2) UTI (urinary tract infection) Status: Acute Assessment and Plan: send urine culture, start ceftriaxone (3) Chronic pain disorder Code(s): G89.4 - CHRONIC PAIN SYNDROME Status: Chronic Assessment and Plan: continue PRN pain medication (4) Dyslipidemia Code(s): E78.5 - HYPERLIPIDEMIA, UNSPECIFIED Status: Chronic Assessment and Plan: continue home meds (5) Hypertension Code(s): I10 - ESSENTIAL (PRIMARY) HYPERTENSION Status: Chronic Assessment and Plan: PRN hydralazine, pain control, continue home medications (6) COPD (chronic obstructive pulmonary disease) Status: Acute Assessment and Plan: not in exacerbation, PRN duoneb ordered (7) Debility Code(s): R53.81 - OTHER MALAISE Status: Acute Assessment and Plan: noted, uses walker at home, PT/OT consulted, pain control (8) Elevated troponin Code(s): R74.8 - ABNORMAL LEVELS OF OTHER SERUM ENZYMES Status: Acute Assessment and Plan: no chest pain, consult cardiology and trend troponins (9) Hyponatremia Code(s): E87.1 - HYPO-OSMOLALITY AND HYPONATREMIA Status: Acute Assessment and Plan: follow on IVF and repeat BMP in the AM
[2018-12-02] MEDS ORDERED: hydrALAZINE 20 MG/ML VIAL SLOW IVP SCH (01:45)
[2018-12-02] MEDS ORDERED: diphenhydrAMINE 25 MG CAP PO SCH (01:45)
[2018-12-02] MEDS ORDERED: Morphine 2 MG/ML SYRINGE SLOW IVP SCH (01:45)
[2018-12-02] MEDS ORDERED: HYDROcodone/Acetaminophen 10/325 mg Tablet PO PRN (02:03)
[2018-12-02] MEDS ORDERED: Ondansetron PF 4 MG/2 ML Vial IVP PRN (02:04)
[2018-12-02] MEDS ORDERED: Senokot S 8.6-50 MG TAB PO PRN (02:04)
[2018-12-02] MEDS ORDERED: Bisacodyl 5 MG TAB PO PRN (02:04)
[2018-12-02] MEDS ORDERED: Acetaminophen 325 MG TAB PO PRN (02:04)
[2018-12-02] MEDS ORDERED: Bisacodyl 10 MG SUPP PR PRN (02:04)
[2018-12-02] MEDS ORDERED: Morphine 2 MG/ML SYRINGE SLOW IVP PRN (02:06)
[2018-12-02 02:32] LABS: #Basophils 0.1 thou/uL (0.0-0.2); #Eosinphils 0.2 thou/uL (0.0-0.7); #Lymphocytes 1.5 thou/uL (1.20-3.40); #Monocytes 0.7 thou/uL (0.11-0.59); #Neutrophils 11.4 thou/uL (1.40-6.50); %Basophils 0.5 % (0.0-1.0); %Eosinophils 1.3 % (0.0-10.0); %Lymphocytes 10.9 % (21.0-51.0); %Monocytes 5.2 % (0.0-10.0); Hemoglobin 13.4 g/dL (12.0-16.0); Mean Corpuscular HGB CONC 33.9 g/dL (32.0-36.0); Mean Corpuscular Hemoglobin 31.2 pg (27.0-31.0); Mean Corpuscular Volume 92.2 fL (78.0-98.0); Mean Platelet Volume 6.3 fL (7.4-10.4); Platelet Count 325 thou/uL (130-400); RBC Distribution Width 12.4 % (11.5-14.5); Red Blood Cell (RBC) Count 4.28 mill/uL (4.20-5.40); White Blood Cell (WBC) Count 13.9 thou/uL (4.8-10.8)
[2018-12-02 02:56] LABS: Troponin I 0.084 ng/mL (< 0.028)
[2018-12-02 03:04] LABS: Anion Gap 11 mmol/L (10-20); BUN (Urea Nitrogen) 11 mg/dL (9.8-20.1); Calc. Creatinine Clearance 0 mL/min (70-130); Carbon Dioxide 28 mmol/L (23-31); Chloride 97 mmol/L (98-107); Estimated GFR-MDRD 71; Glucose 155 mg/dL (83-110); Potassium 3.4 mmol/L (3.5-5.1); Sodium 133 mmol/L (136-145)
[2018-12-02] MEDS: Sodium Chloride 0.9% 1,000 ML IV SCH ×2 (03:32→17:11)
[2018-12-02] MEDS: cefTRIAXone\\ROCEPHIN 1 GM in Sodium Chloride 0.9% 100 ML IVPB SCH (03:32)
[2018-12-02 03:43] VITALS: BMI 25.7
[2018-12-02] MEDS: traMADol HCl 50 MG TAB PO PRN ×3 (06:28→21:54)
[2018-12-02] MEDS: Gabapentin 300 MG CAP PO SCH ×3 (08:15→21:47)
[2018-12-02] MEDS: Pilocarpine 5 MG TAB PO SCH ×3 (08:16→21:54)
[2018-12-02] MEDS: DULoxetine 60 MG CAP PO SCH (08:16)
[2018-12-02] MEDS: Atenolol 50 MG TAB PO SCH ×2 (08:16→21:46)
[2018-12-02] MEDS: Furosemide 40 MG TAB PO SCH (08:16)
[2018-12-02] MEDS: Enoxaparin Sodium 40 MG/0.4 ML SYRINGE SC SCH (08:17)
[2018-12-02] MEDS ORDERED: Nitroglycerin 0.4 MG TAB (25 Tab Bottle) PO PRN (09:17)
[2018-12-02] MEDS ORDERED: Aspirin 81 mg Enteric Coated Tablet PO SCH (09:30)
[2018-12-02 10:53] LABS: Troponin I 0.098 ng/mL (< 0.028)
--- NOTE | 2018-12-02 12:24 | CON ---
DATE OF CONSULTATION: 12/02/2018 Ms. Douglas is an 88-year-old female status post fall. The patient sustained a fracture to her right knee on the medial aspect of her medial femoral condyle. The patient is resting comfortably in bed. No acute distress. PHYSICAL EXAMINATION: GENERAL: Alert and oriented female, in no acute no acute distress. EXTREMITIES: The patient's right knee immobilizer in place. Brisk cap refill. Neurovascularly intact distally. LABORATORY DATA: H and H 13 and 39. ASSESSMENT AND PLAN: The patient will be nonweightbearing. We will keep the knee immobilizer for 2 weeks. She will likely need skilled placement. I will follow up with her in-house. The patient will be transitioned from knee immobilizer to a hinged knee brace in the future. Job ID: [id number]
[2018-12-02] MEDS: hydrALAZINE 20 MG/ML VIAL SLOW IVP PRN ×2 (16:06→23:04)
--- NOTE | 2018-12-02 17:38 | CON ---
DATE OF CONSULTATION: INDICATION FOR CONSULTATION: An 88-year-old female with most likely a type 2 myocardial infarction. HISTORY OF PRESENT ILLNESS: This very unfortunate 88-year-old female was going to the bathroom last night from the bedroom. She fell and she fractured her right distal femur. Apparently, she has had bilateral knee replacements in the past. She has been deemed an inoperable candidate. Her blood pressure has also been elevated, but she has been in significant pain. She had a previous cardiac workup in the past about 12 years ago. She had a cardiac catheterization in [place] and was told that she had normal coronaries of a 30-year-old. She has had no complaints as far as chest pain. She does have some shortness of breath, but does have a history of COPD. Otherwise, her EKG did show some nonspecific ST-segment changes associated with possible left ventricular hypertrophy. Enzymes on admission, troponin I was 0.1 and then decreased down to 0.08 and is now still at 0.098 at this time. Echocardiogram is still pending, but she denies any chest pain and does not have any evidence of ischemia other than the nonspecific T-wave changes on the EKG. She is very pleasant and says that she is not having any discomfort at this time from a cardiac standpoint, but is having significant knee pain. Her blood pressure earlier today was over 200 systolically, then it decreased down to 150s, and now I believe it has been back up over again to over 200, which maybe contributing some to the elevation of the cardiac enzymes. Her O2 saturations are 95%. She does have some risk factors of coronary artery disease. She has hyperlipidemia, hypertension. She smoked in the past, but then she stopped almost 35 years ago. She has social alcohol use. She has had no significant family history, except for her mother had a stroke in her 60s, but there has been no early coronary artery disease that she is aware of. PAST MEDICAL HISTORY: Significant for hypothyroidism. She has type 2 diabetes, history of hyperlipidemia, hypertension, anxiety, depression, osteoarthritis, chronic COPD. She has had a tonsillectomy, appendectomy, hysterectomy, bilateral total knee replacements, and she has had a left hip replacement. She has had back surgeries in the past, wrist surgeries, cataract procedures, finger procedures. ALLERGIES: SHE IS ALLERGIC TO CODEINE. MEDICATIONS: On admission included, 1. Atenolol. 2. Tramadol. 3. Gabapentin. 4. Fluoxetine. 5. Amitriptyline. 6. Myrbetriq. 7. Furosemide. 8. Hydrocodone. 9. Atorvastatin. 10. Pilocarpine. 11. [place] Thyroid. 12. Nexium. 13. She had been on metformin for a short period time for few months, and then, her doctor changed and she has no longer been on this medication, but I did notice that the blood sugar was 155. REVIEW OF SYSTEMS: She denied any HEENT complaints. No visual changes. She has had no significant chest discomfort. She has had the urinary tract infections in the past, but these had been mild. She has had no other significant complaints on the review of systems from a pulmonary aspect. She does wear glasses. She has had no GI or complaints. She only mainly complains of shortness of breath. She did have some lower extremity edema, which comes and goes for about a year. She has some varicose veins edema usually resolves overnight, then returns during the day. SOCIAL HISTORY: She no longer smokes. She has occasional drink. She lives alone, but family is close by here in [facility]. PHYSICAL EXAMINATION: GENERAL: Reveals a very pleasant, well-developed, well-nourished female, who is in no acute distress. VITAL SIGNS: Blood pressure is 159/70, heart rate is 64 and regular, respiratory rate is 18, and O2 saturation is 95%. She is afebrile. HEENT: Shows the head to be normocephalic and atraumatic. NECK: Carotid pulses are present. She has very soft bilateral carotid bruits noted. CHEST: Clear to auscultation without rales, rhonchi, or wheezing. CARDIOVASCULAR: Reveals a regular rate and rhythm with a normal S1 and S2. There is no significant S3 or S4 noted. She has a very soft systolic murmur at the upper sternal border, otherwise is unremarkable. ABDOMEN: Soft and nontender with positive bowel sounds. EXTREMITIES: Showed no clubbing or cyanosis. The right leg is in an immobilizer apparatus. The right pedal pulse and right popliteal pulses are present. It is difficult to palpate left popliteal pulses on the survey even, but I could feel one. I could not palpate left pedal pulses. She did have a left femoral pulse, however. NEUROLOGICAL: She appears to be intact. She was unable to get out of the bed due to the right leg fracture. SKIN: Warm and dry. LABORATORY DATA: Shows hemoglobin of 13.4, hematocrit of 39.5, platelet count was 325,000, WBC of 13.9. Sodium was 133 with potassium of 3.4, BUN was 11 with a creatinine of 0.77, and blood sugar was 155. Troponin I as noted above. IMAGING STUDIES: Echocardiogram has been ordered and still I believe was already done, and we will recheck that. I will check the echocardiogram as soon as I am able to do that. Further recommendations may depend on the echocardiogram results, but she did have a cardiac catheterization 12 years ago, which was reportedly unremarkable. IMPRESSION: 1. Elderly female with a right distal femur fracture, who has been placed in the mobilizer apparatus at this time and she seems to be doing quite well, except for the pain. She denies any chest pain, and this will be dealt with by the primary service or the Orthopedics. 2. Slight elevation of the cardiac enzymes, which most likely is due to demand ischemia associated with the pain as well as with the hypertension. They have already started to trend downward and this is not too concerning. Certainly in the future, she could undergo some type of stress testing, if indicated. Again, this can be done as an outpatient. At this time, I would not consider stress testing in this lady as she is relatively asymptomatic. An EKG does not show any ST-segment elevation, and the cardiac enzymes are indeterminate. 3. Hyperlipidemia. We will continue on her present medication. She is taking atorvastatin. We will continue this medication. There is no cholesterol level that I can see. This can certainly be dealt with rather primary care physician. 4. As far as her hypertension is concerned, we will need to resume her medications, and we will start her on amlodipine at least for control of the blood pressure, but she does stay at home. Her blood pressure has been under good control, and I suspect this is due to the pain that she is suffering with the right leg fracture. At this time, she appears to be stable from a cardiac standpoint and further recommendations will depend on the results of the echocardiogram, but no further acute testing would be performed at this time. Job ID: [id number]
[2018-12-02] MEDS ORDERED: Melatonin 3 MG TAB PO PRN (18:43)
[2018-12-02] MEDS ORDERED: diphenhydrAMINE 25 MG CAP PO PRN (18:43)
[2018-12-02 18:51] LABS: Troponin I 0.089 ng/mL (< 0.028)
[2018-12-02] MEDS: Atorvastatin Calcium 10 MG TAB PO SCH (21:47)
[2018-12-03] MEDS: cefTRIAXone\\ROCEPHIN 1 GM in Sodium Chloride 0.9% 100 ML IVPB SCH (04:10)
[2018-12-03] MEDS: hydrALAZINE 20 MG/ML VIAL SLOW IVP PRN (04:11)
[2018-12-03] MEDS: Sodium Chloride 0.9% 1,000 ML IV SCH (06:02)
[2018-12-03 06:10] LABS: #Eosinphils 0.1 thou/uL (0.0-0.7); #Lymphocytes 1.8 thou/uL (1.20-3.40); #Neutrophils 9.1 thou/uL (1.40-6.50); %Basophils 0.4 % (0.0-1.0); %Eosinophils 1.2 % (0.0-10.0); %Lymphocytes 14.5 % (21.0-51.0); %Monocytes 8.4 % (0.0-10.0); %Neutrophils 75.5 % (42.0-75.0); Hemoglobin 12.8 g/dL (12.0-16.0); Mean Corpuscular HGB CONC 33.7 g/dL (32.0-36.0); Mean Corpuscular Hemoglobin 31.2 pg (27.0-31.0); Mean Corpuscular Volume 92.5 fL (78.0-98.0); Mean Platelet Volume 6.6 fL (7.4-10.4); Platelet Count 336 thou/uL (130-400); RBC Distribution Width 12.6 % (11.5-14.5); Red Blood Cell (RBC) Count 4.09 mill/uL (4.20-5.40); White Blood Cell (WBC) Count 12.1 thou/uL (4.8-10.8)
[2018-12-03 06:33] LABS: ALT (SGPT) 10 U/L (8-55); AST (SGOT) 12 U/L (5-34); Albumin 3.4 g/dL (3.4-4.8); Alkaline Phosphatase 72 U/L (40-110); Anion Gap 12 mmol/L (10-20); BUN (Urea Nitrogen) 11 mg/dL (9.8-20.1); Bilirubin, Total 0.3 mg/dL (0.2-1.2); Calc. Creatinine Clearance 60 mL/min (70-130); Calcium 8.2 mg/dL (7.8-10.44); Carbon Dioxide 22 mmol/L (23-31); Chloride 96 mmol/L (98-107); Estimated GFR-MDRD 86; Globulin 2.6 g/dL (2.4-3.5); Glucose 113 mg/dL (83-110); Magnesium 1.5 mg/dL (1.6-2.6); Potassium 3.7 mmol/L (3.5-5.1); Sodium 126 mmol/L (136-145)
[2018-12-03] MEDS ORDERED: Prevnar 13-Val Conj/PF 0.5 ML SYRINGE IM ONE (08:00)
[2018-12-03] MEDS: Atenolol 50 MG TAB PO SCH ×2 (08:15→20:20)
[2018-12-03] MEDS: Enoxaparin Sodium 40 MG/0.4 ML SYRINGE SC SCH (08:15)
[2018-12-03] MEDS: Furosemide 40 MG TAB PO SCH (08:16)
[2018-12-03] MEDS: Pilocarpine 5 MG TAB PO SCH ×3 (08:17→20:20)
[2018-12-03] MEDS: Gabapentin 300 MG CAP PO SCH ×3 (08:17→20:20)
[2018-12-03] MEDS: DULoxetine 60 MG CAP PO SCH (08:17)
[2018-12-03] MEDS: Aspirin 81 mg Enteric Coated Tablet PO SCH (08:17)
[2018-12-03] MEDS: Amlodipine 5 MG TAB PO SCH (08:27)
[2018-12-03] MEDS: Vancomycin HCl 1 GM in Premix Bag 1 BAG IVPB SCH (11:08)
[2018-12-03] MEDS: traMADol HCl 50 MG TAB PO PRN (11:15)
--- NOTE | 2018-12-03 12:19 | CON ---
DATE OF CONSULTATION: CHIEF COMPLAINT: Right knee pain. HISTORY OF PRESENT ILLNESS: Ms. Douglas is an 88-year-old female with status post fall with right medial condyle fracture. The patient is resting comfortably in bed. She will be evaluated by Medicine and has a discharge planning likely to long-term at the [place]. The patient is otherwise without complaints. Resting comfortable in bed with her knee immobilizers in place. PHYSICAL EXAMINATION: VITAL SIGNS: Temperature 97.5, pulse 71, respiratory rate 18, and blood pressure 155/79. GENERAL: Alert and oriented female, in no acute distress. EXTREMITIES: Right lower extremity, knee immobilizer in place. Neurovascularly intact. Soft compartments. Decreasing effusion. IMPRESSION: Periprosthetic medial epicondyle fracture, nondisplaced. ASSESSMENT AND PLAN: The patient will remain nonweightbearing, remain in knee immobilizer for 2 weeks. Will be transitioned to hinged brace. Follow up with me in clinic in 2 to 3 weeks. The patient will require long-term because of social needs and will follow up with me as discussed. Job ID: [id number]
[2018-12-03 12:20] LABS: Anion Gap 10 mmol/L (10-20); BUN (Urea Nitrogen) 10 mg/dL (9.8-20.1); Calc. Creatinine Clearance 57 mL/min (70-130); Calcium 8.4 mg/dL (7.8-10.44); Carbon Dioxide 25 mmol/L (23-31); Chloride 94 mmol/L (98-107); Estimated GFR-MDRD 80; Glucose 180 mg/dL (83-110); Potassium 3.4 mmol/L (3.5-5.1); Sodium 126 mmol/L (136-145)
--- NOTE | 2018-12-03 13:52 | PDOC.CPN ---
- Subjective Date: 12/03/18 Time: 14:05 Interval history: The pt seen and examined. No overnight events. No cardiac complaints. - Objective Allergies/Adverse Reactions: Allergies Allergy/AdvReac Type Severity Reaction Status Date / Time codeine Allergy Verified 12/02/18 00:25 Visit Medications: Current Medications Acetaminophen (Tylenol) 650 mg PO Q4H PRN PRN Reason: Headache/Fever/Mild Pain (1-3) Hydrocodone Bitart/Acetaminophen ([place] 10/325) 1 tab PO HSPRN PRN PRN Reason: Moderate Pain (4-6) Albuterol/Ipratropium (Duoneb) 3 ml NEB Q6H PRN PRN Reason: SOB &/or Wheezing Amlodipine Besylate (Norvasc) 5 mg PO DAILY [facility] Last Admin: 12/03/18 08:27 Dose: 5 mg Aspirin (Ecotrin) 81 mg PO DAILY [facility] Last Admin: 12/03/18 08:17 Dose: 81 mg Atenolol (Tenormin) 50 mg PO BID [facility] Last Admin: 12/03/18 08:15 Dose: 50 mg Atorvastatin Calcium (Lipitor) 10 mg PO HS [facility] Last Admin: 12/02/18 21:47 Dose: 10 mg Bisacodyl (Dulcolax) 10 mg PO DAILYPRN PRN PRN Reason: Constipation Last Admin: 12/03/18 08:16 Dose: 10 mg Bisacodyl (Dulcolax) 10 mg IA DAILYPRN PRN PRN Reason: Constipation Diphenhydramine HCl (Benadryl) 25 mg PO Q6H PRN PRN Reason: Itching & Insomnia Duloxetine HCl (Cymbalta) 60 mg PO DAILY [facility] Last Admin: 12/03/18 08:17 Dose: 60 mg Enoxaparin Sodium (Lovenox) 40 mg SC 0900 [facility] Last Admin: 12/03/18 08:15 Dose: 40 mg Gabapentin (Neurontin) 300 mg PO TID [facility] Last Admin: 12/03/18 08:17 Dose: 300 mg Hydralazine HCl (Apresoline) 10 mg SLOW IVP Q4H PRN PRN Reason: SBP GREATER THAN 160 Last Admin: 12/03/18 04:11 Dose: 10 mg Ceftriaxone Sodium 1 gm/ (Sodium Chloride) 100 mls @ 200 mls/hr IVPB 0300 [facility] Stop: 12/08/18 03:29 Last Admin: 12/03/18 04:10 Dose: 100 mls Vancomycin HCl 1 gm/ Device 200 mls @ 200 mls/hr IVPB 1100 [facility] Last Admin: 12/03/18 11:08 Dose: 200 mls Melatonin (Melatonin) 3 mg PO HS PRN PRN Reason: Insomnia Mirabegron (Myrbetriq Er) 25 mg PO DAILY [facility] Last Admin: 12/03/18 08:17 Dose: 25 mg Miscellaneous Medication (Pharmacy To Dose) 1 each IVPB PRN PRN PRN Reason: Pharmacy to dose Morphine Sulfate (Morphine) 2 mg SLOW IVP Q4H PRN PRN Reason: Breakthrough Pain Nitroglycerin (Nitrostat) 0.4 mg PO Q5MIN PRN PRN Reason: Chest Pain Ondansetron HCl (Zofran) 4 mg IVP Q6H PRN PRN Reason: Nausea/Vomiting Pantoprazole Sodium (Protonix) 40 mg PO QAM-WM [facility] Last Admin: 12/03/18 08:17 Dose: 40 mg Pilocarpine HCl (Salagen) 5 mg PO TID [facility] Last Admin: 12/03/18 08:17 Dose: 5 mg Senna/Docusate Sodium (Senokot S) 2 tab PO BIDPRN PRN PRN Reason: Constipation Thyroid ([place] Thyroid) 90 mg PO 0600 [facility] Last Admin: 12/03/18 06:04 Dose: 90 mg Tramadol HCl (Ultram) 50 mg PO Q4H PRN PRN Reason: Moderate Pain (4-6) Last Admin: 12/03/18 11:15 Dose: 50 mg Vital Signs & Weight: Vital Signs Temp Pulse Resp BP Pulse Ox 12/03/18 11:08 98.3 F 68 18 136/63 95 12/03/18 08:08 96 12/03/18 07:33 97.6 F 76 18 176/71 H 95 12/03/18 05:45 77 155/79 H 12/03/18 04:11 79 12/03/18 04:00 97.5 F L 74 18 168/67 H 95 Weight 138 lb 4.8 oz - Physical Exam General: alert & oriented x3 HEENT: mucus membranes moist Cardiac: regular rate and rhythm, S1/S2 Lungs: decreased breath sounds Musculoskeletal: decreased range of motion - Labs Result Diagrams: 12/03/18 04:57 12/03/18 11:43 Troponin/CKMB CK-MB (CK-2) 3.4 ng/mL (0-6.6) 12/01/18 19:09 Troponin I 0.089 ng/mL (< 0.028) H 12/02/18 18:16 - Assessment/Plan Assessment/Plan: 1. Elevated Trop - possible 2/2 s/p fall and Rt knee injury/fx, demand ischemia. Type 2 UT. She denies chest pain or SOB. 2. S/p Rt Medial condyle fx - cont. non-surgical management; 3. HTN - Norvasc 5mg qd was started from this AM 4. HLD - on Statin 5. COPD - 6. Hyponatremia - will start fluid restriction 1200ml/day MAR reviewed Pt. seen and eval. by me. She denies any cardiac complaints. Chest clear. RRR. No edema. I agree withthe A/P by the REHAB DIRECTOR OCCUPATIONAL THERAPIST. Cardiac status is stable. I will sign off. mai
--- NOTE | 2018-12-03 17:11 | PDOC.HOSPP ---
- Subjective Encounter Date: 12/03/18 Encounter Time: 17:08 Subjective: Patient seen and examined for Gen weakness/fall. No CP or SOB. No new complaints. No overnight events - Objective Vital Signs & Weight: Vital Signs (12 hours) Temp Pulse Pulse Pulse Resp BP BP 12/03/18 13:19 72 74 160/70 H 130/60 12/03/18 11:08 98.3 F 68 18 12/03/18 08:08 12/03/18 07:33 97.6 F 76 18 12/03/18 05:45 77 BP Pulse Ox 12/03/18 13:19 12/03/18 11:08 136/63 95 12/03/18 08:08 96 12/03/18 07:33 176/71 H 95 12/03/18 05:45 155/79 H Weight Weight 138 lb 4.8 oz I&O: 12/02/18 12/03/18 12/04/18 06:59 06:59 06:59 Intake Total 1570 Output Total 1550 Balance 20 Result Diagrams: 12/05/18 05:05 12/05/18 05:05 Additional Labs: Microbiology 12/01/18 19:00 Urine Straight Catheter Urine Culture - Preliminary Presumptive Enterococcus sp. Laboratory Tests 12/03/18 12/03/18 12/03/18 04:57 09:12 09:12 Serum Osmolality Magnesium 1.5 L Urine Osmolality 639 Urine Sodium 183 12/03/18 11:43 Serum Osmolality 271 L Magnesium Urine Osmolality Urine Sodium EKG Reviewed by me: Yes (Tele SR) Hospitalist ROS - Review of Systems Respiratory: denies: cough, dry, shortness of breath, hemoptysis, SOB with excertion, pleuritic pain, sputum, wheezing, other Cardiovascular: denies: chest pain, palpitations, orthopnea, paroxysmal noc. dyspnea, edema, light headedness, other Gastrointestinal: denies: nausea, vomiting, abdominal pain, diarrhea, constipation, melena, hematochezia, other - Medication Medications: Active Medications Generic Name Dose Route Start Last Admin Trade Name Freq PRN Reason Stop Dose Admin Amlodipine Besylate 5 mg 12/03/18 09:00 12/03/18 08:27 Norvasc PO 5 mg DAILY DANIELLA Administration Aspirin 81 mg 12/03/18 09:00 12/03/18 08:17 Ecotrin PO 81 mg DAILY DANIELLA Administration Atenolol 50 mg 12/02/18 09:00 12/03/18 08:15 Tenormin PO 50 mg BID DANIELLA Administration Atorvastatin Calcium 10 mg 12/02/18 21:00 12/02/18 21:47 Lipitor PO 10 mg HS DANIELLA Administration Bisacodyl 10 mg 12/02/18 02:04 12/03/18 08:16 Dulcolax PO 10 mg DAILYPRN PRN Administration Constipation Duloxetine HCl 60 mg 12/02/18 09:00 12/03/18 08:17 Cymbalta PO 60 mg DAILY DANIELLA Administration Enoxaparin Sodium 40 mg 12/02/18 09:00 12/03/18 08:15 Lovenox SC 40 mg 0900 DANIELLA Administration Gabapentin 300 mg 12/02/18 09:00 12/03/18 14:37 Neurontin PO 300 mg TID DANIELLA Administration Hydralazine HCl 10 mg 12/02/18 02:07 12/03/18 04:11 Apresoline SLOW IVP 10 mg Q4H PRN Administration SBP GREATER THAN 160 Ceftriaxone Sodium 1 gm/ 100 mls @ 200 mls/hr 12/02/18 03:00 12/03/18 04:10 Sodium Chloride IVPB 12/08/18 03:29 100 mls 0300 DANIELLA Administration Vancomycin HCl 1 gm/ Device 200 mls @ 200 mls/hr 12/03/18 11:00 12/03/18 11: 08 IVPB 200 mls 1100 DANIELLA Administration Mirabegron 25 mg 12/02/18 09:00 12/03/18 08:17 Myrbetriq Er PO 25 mg DAILY DANIELLA Administration Pantoprazole Sodium 40 mg 12/02/18 08:00 12/03/18 08:17 Protonix PO 40 mg QAM-WM DANIELLA Administration Pilocarpine HCl 5 mg 12/02/18 09:00 12/03/18 14:37 Salagen PO 5 mg TID DANIELLA Administration Thyroid 90 mg 12/02/18 06:00 12/03/18 06:04 Morenci Thyroid PO 90 mg 0600 DANIELLA Administration Tramadol HCl 50 mg 12/02/18 18:43 12/03/18 11:15 Ultram PO 50 mg Q4H PRN Administration Moderate Pain (4-6) - Exam General Appearance: NAD Neck: supple, no JVD Heart: RRR, no gallops, no rubs Heart - other findings: no heaves/pulsations Respiratory: CTAB, no wheezes, no rales, no ronchi Gastrointestinal: soft, non-tender, non-distended, normal bowel sounds Extremities: no edema Skin: no lesions Hosp A/P - Plan DVT proph w/lovenox Gen weakness/Rt knee fracture Enterococcus UTI 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
[2018-12-03] MEDS ORDERED: Magnesium 2 GM/50 ML 2 GM in Premix Bag 1 BAG IVPB SCH (17:15)
[2018-12-03] MEDS: Senokot S 8.6-50 MG TAB PO SCH (20:20)
[2018-12-03] MEDS: Atorvastatin Calcium 10 MG TAB PO SCH (20:20)
[2018-12-04] MEDS: cefTRIAXone\\ROCEPHIN 1 GM in Sodium Chloride 0.9% 100 ML IVPB SCH (03:38)
[2018-12-04 05:25] LABS: Hemoglobin 12.3 g/dL (12.0-16.0); Platelet Count 324 thou/uL (130-400)
[2018-12-04 05:43] LABS: Anion Gap 11 mmol/L (10-20); BUN (Urea Nitrogen) 12 mg/dL (9.8-20.1); Calc. Creatinine Clearance 61 mL/min (70-130); Calcium 8.3 mg/dL (7.8-10.44); Carbon Dioxide 24 mmol/L (23-31); Chloride 94 mmol/L (98-107); Estimated GFR-MDRD 88; Glucose 117 mg/dL (83-110); Magnesium 1.8 mg/dL (1.6-2.6); Potassium 3.6 mmol/L (3.5-5.1); Sodium 125 mmol/L (136-145)
[2018-12-04] MEDS: hydrALAZINE 20 MG/ML VIAL SLOW IVP PRN (07:15)
[2018-12-04] MEDS: Polyethylene Glycol 3350 17 GM Packet PO SCH (08:05)
[2018-12-04] MEDS: Atenolol 50 MG TAB PO SCH ×2 (08:06→20:56)
[2018-12-04] MEDS: Saccharomyces boulardii 250 MG CAP PO SCH (08:06)
[2018-12-04] MEDS: Amlodipine 5 MG TAB PO SCH (08:06)
[2018-12-04] MEDS: DULoxetine 60 MG CAP PO SCH (08:06)
[2018-12-04] MEDS: Senokot S 8.6-50 MG TAB PO SCH ×2 (08:06→20:57)
[2018-12-04] MEDS: Gabapentin 300 MG CAP PO SCH ×3 (08:06→20:57)
[2018-12-04] MEDS: Aspirin 81 mg Enteric Coated Tablet PO SCH (08:06)
[2018-12-04] MEDS: Pilocarpine 5 MG TAB PO SCH ×3 (08:07→20:57)
[2018-12-04] MEDS: Enoxaparin Sodium 40 MG/0.4 ML SYRINGE SC SCH (08:07)
[2018-12-04] MEDS ORDERED: Tolvaptan 15 MG TAB PO SCH (10:00)
[2018-12-04] MEDS: Vancomycin HCl 1 GM in Premix Bag 1 BAG IVPB SCH (10:59)
[2018-12-04 19:23] LABS: Sodium 134 mmol/L (136-145)
[2018-12-04] MEDS: Atorvastatin Calcium 10 MG TAB PO SCH (20:57)
[2018-12-04] MEDS: Cipro 250 MG TAB PO SCH (20:59)
--- NOTE | 2018-12-04 22:04 | PDOC.HOSPP ---
- Subjective Encounter Date: 12/04/18 Encounter Time: 10:30 Subjective: Patient seen and examined for gen weakness/fall/hyponatremia. No new complaints. No overnight events - Objective Vital Signs & Weight: Vital Signs (12 hours) Temp Pulse Resp BP BP Pulse Ox 12/04/18 20:56 80 168/72 H 12/04/18 15:28 98.3 F 71 18 137/61 95 12/04/18 11:48 98.2 F 68 18 157/63 H 95 Weight Weight 138 lb 4.8 oz I&O: 12/03/18 12/04/18 12/05/18 06:59 06:59 06:59 Intake Total 1570 1060 720 Output Total 1550 930 975 Balance 20 130 -255 Result Diagrams: 12/05/18 05:05 12/05/18 05:05 Additional Labs: Laboratory Tests 12/03/18 12/04/18 11:43 04:53 Sodium 126 L 125 L EKG Reviewed by me: Yes (Tele SR) Hospitalist ROS - Review of Systems Respiratory: denies: cough, dry, shortness of breath, hemoptysis, SOB with excertion, pleuritic pain, sputum, wheezing, other Cardiovascular: denies: chest pain, palpitations, orthopnea, paroxysmal noc. dyspnea, edema, light headedness, other Gastrointestinal: denies: nausea, vomiting, abdominal pain, diarrhea, constipation, melena, hematochezia, other - Medication Medications: Active Medications Generic Name Dose Route Start Last Admin Trade Name Freq PRN Reason Stop Dose Admin Acetaminophen 650 mg 12/02/18 02:04 12/04/18 06:17 Tylenol PO 650 mg Q4H PRN Administration Headache/Fever/Mild Pain (1-3) Amlodipine Besylate 5 mg 12/03/18 09:00 12/04/18 08:06 Norvasc PO 5 mg DAILY DANIELLA Administration Aspirin 81 mg 12/03/18 09:00 12/04/18 08:06 Ecotrin PO 81 mg DAILY DANIELLA Administration Atenolol 50 mg 12/02/18 09:00 12/04/18 20:56 Tenormin PO 50 mg BID DANIELLA Administration Atorvastatin Calcium 10 mg 12/02/18 21:00 12/04/18 20:57 Lipitor PO 10 mg HS DANIELLA Administration Bisacodyl 10 mg 12/02/18 02:04 12/03/18 08:16 Dulcolax PO 10 mg DAILYPRN PRN Administration Constipation Ciprofloxacin 250 mg 12/04/18 20:00 12/04/18 20:59 Cipro PO 250 mg BID@0600,2000 DANIELLA Administration Duloxetine HCl 60 mg 12/02/18 09:00 12/04/18 08:06 Cymbalta PO 60 mg DAILY DANIELLA Administration Enoxaparin Sodium 40 mg 12/02/18 09:00 12/04/18 08:07 Lovenox SC 40 mg 09 DANIELLA Administration Gabapentin 300 mg 12/02/18 09:00 12/04/18 20:57 Neurontin PO 300 mg TID DANIELLA Administration Hydralazine HCl 10 mg 12/02/18 02:07 12/03/18 04:11 Apresoline SLOW IVP 10 mg Q4H PRN Administration SBP GREATER THAN 160 Mirabegron 25 mg 12/02/18 09:00 12/04/18 08:06 Myrbetriq Er PO 25 mg DAILY DANIELLA Administration Pantoprazole Sodium 40 mg 12/02/18 08:00 12/04/18 08:06 Protonix PO 40 mg QAM-WM DANIELLA Administration Pilocarpine HCl 5 mg 12/02/18 09:00 12/04/18 20:57 Salagen PO 5 mg TID DANIELLA Administration Polyethylene Glycol 17 gm 12/04/18 09:00 12/04/18 08:05 Miralax PO 17 gm DAILY DANIELLA Administration Saccharomyces Boulardii 250 mg 12/04/18 09:00 12/04/18 08:06 Florastor PO 250 mg DAILY DANIELLA Administration Senna/Docusate Sodium 2 tab 12/03/18 21:00 12/04/18 20:57 Senokot S PO 2 tab BID DANIELLA Administration Thyroid 90 mg 12/02/18 06:00 12/04/18 06:13 Carbon Thyroid PO 90 mg 0600 DANIELLA Administration Tramadol HCl 50 mg 12/02/18 18:43 12/03/18 11:15 Ultram PO 50 mg Q4H PRN Administration Moderate Pain (4-6) - Exam General Appearance: NAD Heart: RRR, no gallops Respiratory: CTAB, no rales Gastrointestinal: soft, non-tender, normal bowel sounds Extremities: no edema Hosp A/P - Plan DVT proph w/lovenox, DVT proph w/SCDs Gen weakness/Knee fracture Enterococcus UTI 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
[2018-12-05 05:33] LABS: Hemoglobin 12.4 g/dL (12.0-16.0); Platelet Count 349 thou/uL (130-400)
[2018-12-05 05:56] LABS: Anion Gap 12 mmol/L (10-20); BUN (Urea Nitrogen) 11 mg/dL (9.8-20.1); Calc. Creatinine Clearance 59 mL/min (70-130); Carbon Dioxide 28 mmol/L (23-31); Chloride 99 mmol/L (98-107); Estimated GFR-MDRD 83; Glucose 132 mg/dL (83-110); Potassium 3.8 mmol/L (3.5-5.1); Sodium 135 mmol/L (136-145)
[2018-12-05] MEDS: Cipro 250 MG TAB PO SCH (06:11)
--- NOTE | 2018-12-05 06:49 | CON ---
DATE OF CONSULTATION: REQUESTING PHYSICIAN: Fabian Tipton MD REASON FOR CONSULTATION: Hyponatremia. IMPRESSION: 1. Hyponatremia, which going by the urine chemistry is likely in the context of #2. 2. Syndrome of inappropriate antidiuretic hormone. PLAN: 1. The patient to be on anti-ADH medication, tolvaptan and monitor the sodium level accordingly. 2. Increase protein intake in the way animal meat. 3. Close outpatient nephrology followup status post discharge. HISTORY OF PRESENT ILLNESS: History is that of an 88-year-old female patient with a history of hypertension, arthritis, COPD who presented to the emergency room with back pain, mechanical fall, and right knee pain. Imaging studies revealed a nondisplaced right femoral fracture just above the right , admitted for nonsurgical management of this fracture. The patient noted with a sodium of 129 on admission which became 133 down to 125. As a result of this, decision has been taken to involve Renal in the management of this case. PAST MEDICAL HISTORY: As documented in the body of the history. FAMILY HISTORY: Not significantly related to presenting illness. MEDICATION: Reviewed and as documented in the [employer]. SOCIAL HISTORY: Remote tobacco use. No alcohol. No illicit drug use. REVIEW OF SYSTEMS: As documented in the body of the history. All other systems were reviewed and found not to be significantly related to the presenting illness. LABORATORY INVESTIGATION: Significant for sodium of 125. PHYSICAL EXAMINATION: GENERAL: The patient was found not to be in any obvious distress, noted with the following vital signs. VITAL SIGNS: Afebrile, temperature 97.8, pulse 81, respiratory rate 16, O2 saturation 94% with a blood pressure of 168/72. HEENT: Unremarkable. CARDIOVASCULAR: First and second heard sounds were heard. RESPIRATORY: Clear to auscultation. DIGESTIVE: Revealed a benign abdomen with positive bowel sounds. EXTREMITIES: No peripheral edema. SKIN: No new gross rash. LYMPHATICS: No peripheral lymphadenopathy. 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 Thank you for this consultation. We will follow with you. Job ID: [id number]
[2018-12-05 07:43] VITALS: TEMP 97.8
[2018-12-05] MEDS ORDERED: Tolvaptan 15 MG TAB PO SCH (09:00)
[2018-12-05] MEDS: Enoxaparin Sodium 40 MG/0.4 ML SYRINGE SC SCH (09:09)
[2018-12-05] MEDS: Senokot S 8.6-50 MG TAB PO SCH (09:10)
[2018-12-05] MEDS: Pilocarpine 5 MG TAB PO SCH ×2 (09:11→14:58)
[2018-12-05] MEDS: Gabapentin 300 MG CAP PO SCH ×2 (09:11→15:01)
[2018-12-05] MEDS: Amlodipine 5 MG TAB PO SCH (09:12)
[2018-12-05] MEDS: Saccharomyces boulardii 250 MG CAP PO SCH (09:12)
[2018-12-05] MEDS: DULoxetine 60 MG CAP PO SCH (09:12)
[2018-12-05] MEDS: Atenolol 50 MG TAB PO SCH (09:12)
[2018-12-05] MEDS: Polyethylene Glycol 3350 17 GM Packet PO SCH (09:12)
[2018-12-05] MEDS: Aspirin 81 mg Enteric Coated Tablet PO SCH (09:12)
[2018-12-05] MEDS: traMADol HCl 50 MG TAB PO PRN (14:58)
[2018-12-05 15:32] VITALS: BP 113/69
--- NOTE | 2018-12-05 18:53 | DIS ---
DATE OF ADMISSION: 12/04/2018 DATE OF DISCHARGE: 12/05/2018 DISCHARGE DISPOSITION: [facility]. FOLLOWUP: 1. Follow up with primary care physician, Dr. Lali Berry in 1 week. 2. Follow up with Nephrology, Dr. Barajas in 2 weeks. Basic metabolic profile every week is recommended. High-protein diet. 1200 mL fluid restriction. ALLERGIES: THE PATIENT IS ALLERGIC TO CODEINE. DISCHARGE MEDICATIONS: 1. Atenolol 50 mg b.i.d. 2. Amlodipine 5 mg daily. 3. Lipitor 10 mg at bedtime. 4. Cymbalta 60 mg daily. 5. Nexium 20 mg daily. 6. Gabapentin 300 mg three times daily. 7. Morehouse as needed. 8. Mirabegron one tablet daily. 9. Pilocarpine 5 mg three times daily. 10. [place]o Thyroid 90 mg daily. 11. Tramadol as needed. 12. Tylenol as needed. 13. Aspirin 81 mg daily. 14. Ciprofloxacin 250 mg twice daily to be discontinued on 09 December. 15. Lovenox for DVT prophylaxis. 16. Nebulizer treatment as needed. 17. Melatonin 3 mg at bedtime. 18. Florastor 250 mg daily for 2 weeks. 19. Senokot-S two tablets b.i.d. INPATIENT CONSULTANTS: 1. Orthopedic Service, Dr. Rowan. 2. Nephrology, Dr. Karl Phoenix for hyponatremia. DIAGNOSTIC TESTS: Right femur x-ray was negative for acute findings. Right knee x-ray was negative for fractures. Lower extremity CT showed nondisplaced vertically oriented fracture involving the posteromedial aspect of the medial femoral condyle. Echocardiogram showed left ventricular ejection fraction 50% to 55% with diastolic dysfunction. SIGNIFICANT LABORATORY DATA: Lowest sodium level was 125, at discharge is 135. WBC on admission 15.9, at discharge 12.1. Urinalysis showed greater than 50 wbc's. Urine culture showed Enterococcus sensitive to ciprofloxacin. BRIEF HOSPITAL COURSE: The patient is an 88-year-old female with hypertension, COPD, and degenerative joint disease, presented to the hospital with mechanical fall with right knee pain. Her workup was consistent with fracture to her right knee on the medial aspect of the femoral condyle. She was evaluated by orthopedic surgeon, Dr. Rowan. The patient will be nonweightbearing with a knee immobilizer for 2 weeks. The patient will be transitioned from a knee immobilizer to a hinged knee brace in future. Her workup was also consistent with Enterococcus UTI. She was placed on IV antibiotics that has been transitioned to p.o. She also had hyponatremia secondary to SIADH responded well to tolvaptan. Her urine osmolality was 639 with a serum osmolality of 271. She also had multiple other electrolyte abnormalities, which were replaced. She appears stable for discharge to [facility] facility. FINAL DIAGNOSES: 1. Mechanical fall causing right knee fracture as discussed above. 2. Enterococcus urinary tract infection. 3. Hyponatremia secondary to syndrome of inappropriate antidiuretic hormone secretion. 4. Hypokalemia. 5. Hypomagnesemia. 6. Hypertension with hypertensive urgency. 7. Elevated troponin secondary to demand ischemia/type 2 myocardial infarction. 8. Hyperlipidemia. 9. Chronic obstructive pulmonary disease. 10. Physical deconditioning. 11. Leukocytosis, suspected secondary to urinary tract infection. PLAN: Plan was discussed with the patient in detail. She stated understanding. Total time coordinating the discharge was 36 minutes. Job ID: [id number]
--- NOTE | 2018-12-07 13:21 | EKG ---
Test Reason : Blood Pressure : / mmHG Vent. Rate : 064 BPM Atrial Rate : 064 BPM P-R Int : 164 ms QRS Dur : 080 ms QT Int : 480 ms P-R-T Axes : 053 -07 -58 degrees QTc Int : 495 ms Normal sinus rhythm Left ventricular hypertrophy with repolarization abnormality Abnormal ECG Confirmed by KARLA TUBBS, TATYANA ([id number]), research editor MARIANNE RIVAS ([id number]) on 12/07/2018 1:20:48 PM Referred By: Confirmed By:TATYANA ACOSTA MD
== END 2018-12-05 15:26 | DRG 533 ==
LOC: ERS 16:22 → 2NO 21:50 → OBSVTOIN 12-04 13:51
PROVIDERS: ADMIT Internal Medicine; ATTEND Internal Medicine
DX: S72.434A Nondisplaced fracture of medial condyle of right femur, initial encounter for closed fracture (principal); I21.A1 Myocardial infarction type 2; N39.0 Urinary tract infection, site not specified; E22.2 Syndrome of inappropriate secretion of antidiuretic hormone; W18.30XA Fall on same level, unspecified, initial encounter; I10 Essential (primary) hypertension; M19.90 Unspecified osteoarthritis, unspecified site; J44.9 Chronic obstructive pulmonary disease, unspecified; Z96.653 Presence of artificial knee joint, bilateral; B95.2 Enterococcus as the cause of diseases classified elsewhere; I16.0 Hypertensive urgency; F41.9 Anxiety disorder, unspecified; F32.9 Major depressive disorder, single episode, unspecified; E03.9 Hypothyroidism, unspecified; E78.5 Hyperlipidemia, unspecified; E83.42 Hypomagnesemia; E87.6 Hypokalemia; Z90.49 Acquired absence of other specified parts of digestive tract; Y92.012 Bathroom of single-family (private) house as the place of occurrence of the external cause; Z90.710 Acquired absence of both cervix and uterus; Z87.891 Personal history of nicotine dependence; Z88.5 Allergy status to narcotic agent; Z79.899 Other long term (current) drug therapy
CPT/HCPCS: 36415; 51701; 80048; 80053; 81003; 81015; 82553; 83735; 83930; 83935; 84100; 84300; 84484; 85014; 85018; 85025; 85049; 87077; 87086; 87186; 90471; 90670; 93005; 93306; 94760; 96372; G0009; G0390; J0360; J0696; J1650; J2270; J3370; J3475; J3490; Q0163

== ENCOUNTER 2020-07-08 15:07 | Outpatient (CLI) | payer MEDICARE ==
[~2020-07-08 15:07] MED LIST: Iopamidol-370 76% 500 ML 1 ML ONE
== END 2020-07-08 15:08 | disposition home or self-care (01) ==
LOC: BICCT 15:07
PROVIDERS: ATTEND Internal Medicine
DX: M54.5 Low back pain (principal); I70.0 Atherosclerosis of aorta; J98.11 Atelectasis; J47.9 Bronchiectasis, uncomplicated; J98.4 Other disorders of lung; N28.89 Other specified disorders of kidney and ureter; K57.30 Diverticulosis of large intestine without perforation or abscess without bleeding; K42.9 Umbilical hernia without obstruction or gangrene; M47.816 Spondylosis without myelopathy or radiculopathy, lumbar region; M41.9 Scoliosis, unspecified
CPT/HCPCS: 74177; 82565; Q9967

== ENCOUNTER 2020-10-12 15:04 | Outpatient (CLI) | payer MEDICARE ==
[2020-10-12 17:18] LABS: ALT (SGPT) 12 U/L (8-55); AST (SGOT) 15 U/L (5-34); Albumin 3.9 g/dL (3.4-4.8); Alkaline Phosphatase 82 U/L (40-110); Anion Gap 15 mmol/L (10-20); BUN (Urea Nitrogen) 13 mg/dL (9.8-20.1); Bilirubin, Total 0.4 mg/dL (0.2-1.2); Calc. Creatinine Clearance 0 mL/min (70-130); Calcium 9.9 mg/dL (7.8-10.44); Carbon Dioxide 30 mmol/L (23-31); Chloride 99 mmol/L (98-107); Globulin 2.7 g/dL (2.4-3.5); Glucose 106 mg/dL (83-110); Potassium 4.8 mmol/L (3.5-5.1); Protein, Total 6.6 g/dL (5.8-8.1); Sodium 139 mmol/L (136-145)
[2020-10-12 17:46] LABS: #Eosinphils 0.1 10x3/uL (0.0-0.5); #Monocytes 0.6 10x3/uL (0.0-1.1); #Neutrophils 4.9 10x3/uL (1.5-8.4); %Basophils 0.6 % (0.0-2.0); %Eosinophils 1.7 % (0.0-6.0); %Lymphocytes 19.5 % (18.0-47.0); %Monocytes 8.8 % (0.0-10.0); Mean Corpuscular HGB CONC 32.2 g/dL (32.0-36.0); Mean Corpuscular Hemoglobin 26.7 pg (27.0-33.0); Mean Platelet Volume 9.2 fl (7.4-10.4); Platelet Count 404 10x3/uL (150-450); RBC Distribution Width 15.9 % (11.5-14.5); Red Blood Cell (RBC) Count 4.12 10x6/uL (3.90-5.03); White Blood Cell (WBC) Count 7.1 10x3/uL (3.5-10.5)
[2020-10-13 13:27] LABS: SARS-CoV-2 PCR by NAA Not Detected (NotDetected)
== END 2020-10-12 15:05 | disposition home or self-care (01) ==
LOC: LABBT 15:04
PROVIDERS: ATTEND Internal Medicine Cardiovascular Disease
DX: Z01.812 Encounter for preprocedural laboratory examination (principal); I42.0 Dilated cardiomyopathy; Z20.822 Contact with and (suspected) exposure to COVID-19
CPT/HCPCS: 80053; 85025; U0003; U0005

== ENCOUNTER 2020-10-19 | Emergency (ER) | payer MEDICARE | END 2020-10-19 18:49 | disposition home or self-care (01) ==

== ENCOUNTER 2020-12-20 01:03 | Inpatient (IN) | payer MEDICARE ==
[2020-12-20] MEDS ORDERED: Ondansetron PF 4 MG/2 ML Vial IVP PRN (03:35)
[2020-12-20] MEDS ORDERED: Dextrose 50% Abboject 50 ML SYRINGE SLOW IVP PRN (03:35)
[2020-12-20] MEDS ORDERED: Ondansetron ODT 4 MG TAB PO PRN (03:35)
[2020-12-20] MEDS ORDERED: Dextrose 5% in Water 1,000 ML IV PRN (03:35)
[2020-12-20] MEDS ORDERED: traMADol HCl 50 MG TAB PO PRN ×2 (03:38)
[2020-12-20] MEDS ORDERED: Sodium Chloride 0.9% 1,000 ML IV SCH (03:45)
[2020-12-20] MEDS ORDERED: Ibuprofen 200 MG TAB PO SCH (04:00)
[2020-12-20] MEDS: Acetaminophen 325 MG TAB PO SCH ×2 (04:32→12:20)
[2020-12-20 06:39] LABS: Magnesium 1.9 mg/dL (1.6-2.6)
[2020-12-20] MEDS ORDERED: Lidocaine 1% (PF) 30 ML VIAL ONE (08:45)
[2020-12-20] MEDS: Famotidine 20 MG TAB PO SCH ×2 (09:00→21:51)
[2020-12-20] MEDS ORDERED: Lidocaine 1% (PF) 30 ML VIAL SC SCH (09:00)
[2020-12-20] MEDS: Citalopram 20 MG TAB PO SCH (09:00)
[2020-12-20] MEDS ORDERED: Furosemide 40 MG TAB PO SCH (09:00)
[2020-12-20] MEDS ORDERED: FLU VACC QS2021-22(65YR UP)/PF 240 MCG/0.7 ML SYRINGE IM ONE (09:00)
[2020-12-20] MEDS ORDERED: Fish Oil 1,000 MG CAP PO SCH (09:00)
[2020-12-20] MEDS: Carvedilol 3.125 MG TAB PO SCH ×2 (09:00→21:51)
[2020-12-20] MEDS: Atorvastatin Calcium 10 MG TAB PO SCH (09:00)
[2020-12-20] MEDS: Clopidogrel Bisulfate 75 MG TAB PO SCH (09:00)
[2020-12-20] MEDS ORDERED: Gabapentin 300 MG CAP PO SCH (09:00)
[2020-12-20] MEDS: Ascorbic Acid 500 mg Chewable Tablet PO SCH (09:00)
[2020-12-20] MEDS: Fish Oil 1,000 MG CAP PO SCH (09:10)
[2020-12-20] MEDS ORDERED: Ketorolac Tromethamine 30 MG/ML VIAL ONE (10:54)
[2020-12-20] MEDS ORDERED: Ketorolac Tromethamine 30 MG/ML VIAL IVP SCH (11:00)
[2020-12-20] MEDS: Acetaminophen 500 MG TAB PO SCH ×3 (12:21→22:52)
[2020-12-20] MEDS: Ketorolac Tromethamine 30 MG/ML VIAL IVP SCH ×2 (17:51→22:53)
[2020-12-20] MEDS ORDERED: Melatonin 3 MG TAB PO SCH (21:00)
[2020-12-20] MEDS: Gabapentin 300 MG CAP PO SCH (21:51)
[2020-12-21] MEDS: Acetaminophen 500 MG TAB PO SCH ×3 (05:24→18:45)
[2020-12-21] MEDS: Ketorolac Tromethamine 30 MG/ML VIAL IVP SCH (05:25)
[2020-12-21] MEDS: Levothyroxine Sodium 100 MCG TAB PO SCH (05:47)
[2020-12-21 05:54] LABS: #Eosinphils 0.1 thou/uL (0.0-0.7); #Lymphocytes 1.3 thou/uL (1.20-3.40); #Monocytes 0.8 thou/uL (0.11-0.59); #Neutrophils 9.8 thou/uL (1.40-6.50); %Basophils 0.2 % (0.0-1.0); %Eosinophils 0.7 % (0.0-10.0); %Lymphocytes 10.4 % (21.0-51.0); %Monocytes 6.8 % (0.0-10.0); %Neutrophils 81.9 % (42.0-75.0); Hemoglobin 9.6 g/dL (12.0-16.0); Mean Corpuscular HGB CONC 33.9 g/dL (32.0-36.0); Mean Corpuscular Hemoglobin 29.4 pg (27.0-31.0); Mean Corpuscular Volume 86.7 fL (78.0-98.0); Mean Platelet Volume 6.9 fL (7.4-10.4); Platelet Count 278 thou/uL (130-400); RBC Distribution Width 17.4 % (11.5-14.5); Red Blood Cell (RBC) Count 3.27 mill/uL (4.20-5.40)
[2020-12-21 06:13] LABS: Anion Gap 16 mmol/L (10-20); BUN (Urea Nitrogen) 23 mg/dL (9.8-20.1); Calc. Creatinine Clearance 34 mL/min (70-130); Calcium 8.3 mg/dL (7.8-10.44); Carbon Dioxide 22 mmol/L (23-31); Chloride 99 mmol/L (98-107); Glucose 102 mg/dL (83-110); Magnesium 1.7 mg/dL (1.6-2.6); Phosphorus 5.4 mg/dL (2.3-4.7); Potassium 4.8 mmol/L (3.5-5.1); Sodium 132 mmol/L (136-145)
[2020-12-21] MEDS ORDERED: Magnesium 2 GM/50 ML 2 GM in Premix Bag 1 BAG IVPB SCH (08:15)
[2020-12-21] MEDS: Gabapentin 300 MG CAP PO SCH ×4 (08:41→20:26)
[2020-12-21] MEDS: Citalopram 20 MG TAB PO SCH (08:41)
[2020-12-21] MEDS: Carvedilol 3.125 MG TAB PO SCH ×2 (08:41→20:26)
[2020-12-21] MEDS: Fish Oil 1,000 MG CAP PO SCH (08:42)
[2020-12-21] MEDS: Ascorbic Acid 500 mg Chewable Tablet PO SCH (08:44)
[2020-12-21] MEDS: Atorvastatin Calcium 10 MG TAB PO SCH (08:44)
[2020-12-21] MEDS: Clopidogrel Bisulfate 75 MG TAB PO SCH (08:44)
[2020-12-21] MEDS: Famotidine 20 MG TAB PO SCH (08:44)
[2020-12-21] MEDS ORDERED: Fish Oil 1,000 MG CAP PO SCH (09:00)
[2020-12-21] MEDS ORDERED: traMADol HCl 50 MG TAB PO PRN (09:15)
[2020-12-21 18:16] LABS: Bacteria/HPF 4+ HPF (None Seen); Bilirubin Negative (Negative); Blood, Urine Negative (Negative); Clarity Turbid (Clear); Glucose, Urine (Dipstick) Normal (Negative); Ketone, Urine Negative (Negative); Leukocyte 250 Leu/uL (Negative); Nitrite Negative (Negative); Protein, Urine (Dipstick) Negative (Neg-Trace); RBC/HPF 0-3 HPF (0-3); Specific Gravity, Urine 1.011 (1.002-1.036); Squamous Epithelial None Seen HPF (0-3); Urobilinogen Normal mg/dL (Less than 2); pH, Urine 5.5 (5.0-9.0)
[2020-12-21 18:17] LABS: Urine Culture Reflex Yes Yes
[2020-12-21] MEDS: Melatonin 3 MG TAB PO SCH (20:26)
[2020-12-21] MEDS: Senokot S 8.6-50 MG TAB PO SCH (20:34)
[2020-12-22] MEDS: Acetaminophen 500 MG TAB PO SCH ×3 (01:09→13:54)
[2020-12-22] MEDS: Levothyroxine Sodium 100 MCG TAB PO SCH (06:28)
[2020-12-22 07:01] LABS: Anion Gap 17 mmol/L (10-20); BUN (Urea Nitrogen) 37 mg/dL (9.8-20.1); Calc. Creatinine Clearance 27 mL/min (70-130); Calcium 8.1 mg/dL (7.8-10.44); Carbon Dioxide 18 mmol/L (23-31); Chloride 96 mmol/L (98-107); Glucose 95 mg/dL (83-110); Magnesium 2.6 mg/dL (1.6-2.6); Phosphorus 5.9 mg/dL (2.3-4.7); Potassium 5.1 mmol/L (3.5-5.1); Sodium 126 mmol/L (136-145)
[2020-12-22] MEDS ORDERED: Sodium Chloride 0.9% 1,000 ML IV SCH (08:45)
[2020-12-22 09:24] LABS: Hemoglobin 10.1 g/dL (12.0-16.0); Mean Corpuscular HGB CONC 33.6 g/dL (32.0-36.0); Mean Corpuscular Hemoglobin 28.9 pg (27.0-31.0); Mean Corpuscular Volume 86.1 fL (78.0-98.0); Mean Platelet Volume 9.5 fL (7.4-10.4); Platelet Count 241 thou/uL (130-400); RBC Distribution Width 17.4 % (11.5-14.5); White Blood Cell (WBC) Count 12.6 thou/uL (4.8-10.8)
[2020-12-22 09:39] LABS: Actual Bicarbonate (HCO3a) 23.5 mEq/L (22-28); Base Excess (BEa) -3.6 mEq/L (-2.0 to +3.0); CO2 Tension 51.9 mmHg (35.0-45.0); Carboxyhemoglobin (COHb) 0.1 gm% (0.0-3.0); O2 Tension (PaO2), arterial 109.3 mmHg (> 60.0); Potassium - ABG Lab 4.63 mmol/L (3.70-5.30); pH, Arterial 7.27 (7.35-7.45)
[2020-12-22 10:02] LABS: MDiff Complete? YES
[2020-12-22 10:03] LABS: Band 35 % (5-11); Hypochromia SLIGHT = 6-15 cells (100X) (0-5/hpf); Lymphocytes 7 % (21-51); Monocytes 11 % (0-10); Neutrophil 47 % (42-75); Platelet Morphology Comment Appears Adequate
[2020-12-22] MEDS: Carvedilol 3.125 MG TAB PO SCH ×2 (10:06→21:51)
[2020-12-22] MEDS: Gabapentin 300 MG CAP PO SCH ×3 (10:12→21:50)
[2020-12-22] MEDS ORDERED: Calcium Chloride 13.6 MEQ in Sodium Chloride 0.9% 100 ML IVPB SCH (11:15)
[2020-12-22] MEDS: Atorvastatin Calcium 10 MG TAB PO SCH (11:45)
[2020-12-22] MEDS: Citalopram 20 MG TAB PO SCH (11:45)
[2020-12-22] MEDS: Ascorbic Acid 500 mg Chewable Tablet PO SCH (11:45)
[2020-12-22] MEDS: Polyethylene Glycol 3350 17 GM Packet PO SCH (11:46)
[2020-12-22] MEDS: Famotidine 20 MG TAB PO SCH (11:46)
[2020-12-22] MEDS: Senokot S 8.6-50 MG TAB PO SCH ×2 (11:46→21:50)
[2020-12-22] MEDS: Clopidogrel Bisulfate 75 MG TAB PO SCH (11:46)
[2020-12-22] MEDS: Fish Oil 1,000 MG CAP PO SCH (11:46)
[2020-12-22 11:47] LABS: Actual Bicarbonate (HCO3a) 21.3 mEq/L (22-28); Base Excess (BEa) -5.5 mEq/L (-2.0 to +3.0); CO2 Tension 48.2 mmHg (35.0-45.0); Calcium, Ionized (arterial) 1.12 mmol/L (1.12-1.30); Carboxyhemoglobin (COHb) 0.5 gm% (0.0-3.0); Hemoglobin (Hb) 9.1 g/dL (12.0-16.0); O2 Tension (PaO2), arterial 120.8 mmHg (> 60.0); Potassium - ABG Lab 4.42 mmol/L (3.70-5.30); pH, Arterial 7.26 (7.35-7.45)
[2020-12-22] MEDS ORDERED: Hydrocortisone Sod Succ/PF 100 mg/2 ml Vial IVP SCH (12:00)
[2020-12-22] MEDS: cefTRIAXone\\ROCEPHIN 2 GM in Sodium Chloride 0.9% 100 ML IVPB SCH ×2 (12:41→13:08)
[2020-12-22] MEDS ORDERED: Norepinephrine 8 MG in Dextrose 5% in Water 242 ML IVPB PRN (12:45)
[2020-12-22] MEDS ORDERED: Dextrose 50% Abboject 50 ML SYRINGE ONE (12:54)
[2020-12-22 13:00] LABS: Troponin I 0.016 ng/mL (< 0.028)
[2020-12-22] MEDS: Sodium Chloride 0.9% 1,000 ML IV SCH (13:56)
[2020-12-22 14:13] LABS: Puncture Site LRA
[2020-12-22] MEDS: Hydrocortisone Sod Succ/PF 100 mg/2 ml Vial IVP SCH (17:47)
[2020-12-22] MEDS: Acetaminophen 650 MG/20.3 ML UDCUP PO SCH (18:07)
[2020-12-22] MEDS: Melatonin 3 MG TAB PO SCH (21:50)
[2020-12-23] MEDS: Hydrocortisone Sod Succ/PF 100 mg/2 ml Vial IVP SCH ×4 (00:41→17:19)
[2020-12-23] MEDS: Acetaminophen 650 MG/20.3 ML UDCUP PO SCH ×5 (00:41→17:17)
[2020-12-23] MEDS: Sodium Chloride 0.9% 1,000 ML IV SCH (03:29)
[2020-12-23 04:28] LABS: #Lymphocytes 0.4 thou/uL (1.20-3.40); #Monocytes 0.3 thou/uL (0.11-0.59); #Neutrophils 8.2 thou/uL (1.40-6.50); %Basophils 0.1 % (0.0-1.0); %Lymphocytes 4.4 % (21.0-51.0); %Monocytes 3.7 % (0.0-10.0); %Neutrophils 91.8 % (42.0-75.0); Anion Gap 12 mmol/L (10-20); BUN (Urea Nitrogen) 35 mg/dL (9.8-20.1); Calc. Creatinine Clearance 42 mL/min (70-130); Calcium 8.4 mg/dL (7.8-10.44); Carbon Dioxide 23 mmol/L (23-31); Chloride 102 mmol/L (98-107); Glucose 139 mg/dL (83-110); Hemoglobin 8.2 g/dL (12.0-16.0); Magnesium 2.2 mg/dL (1.6-2.6); Mean Corpuscular HGB CONC 32.4 g/dL (32.0-36.0); Mean Corpuscular Hemoglobin 28.1 pg (27.0-31.0); Mean Corpuscular Volume 86.6 fL (78.0-98.0); Phosphorus 3.1 mg/dL (2.3-4.7); Platelet Count 319 thou/uL (130-400); Potassium 4.7 mmol/L (3.5-5.1); RBC Distribution Width 17.2 % (11.5-14.5); Red Blood Cell (RBC) Count 2.92 mill/uL (4.20-5.40); Sodium 132 mmol/L (136-145)
[2020-12-23] MEDS: Levothyroxine Sodium 25 MCG TAB PO SCH (06:43)
[2020-12-23] MEDS ORDERED: Sodium Phosphate 30 MMOL in Sodium Chloride 0.9% 250 ML 250 ML IVPB SCH (07:45)
[2020-12-23] MEDS: Ascorbic Acid 500 mg Chewable Tablet PO SCH (07:47)
[2020-12-23] MEDS: Carvedilol 3.125 MG TAB PO SCH ×2 (07:47→21:23)
[2020-12-23] MEDS: Clopidogrel Bisulfate 75 MG TAB PO SCH (07:48)
[2020-12-23] MEDS: Famotidine 20 MG TAB PO SCH (07:48)
[2020-12-23] MEDS: Gabapentin 300 MG CAP PO SCH ×3 (07:48→21:23)
[2020-12-23] MEDS: Citalopram 20 MG TAB PO SCH (07:48)
[2020-12-23] MEDS: Fish Oil 1,000 MG CAP PO SCH (07:48)
[2020-12-23] MEDS: Polyethylene Glycol 3350 17 GM Packet PO SCH (07:49)
[2020-12-23] MEDS: Senokot S 8.6-50 MG TAB PO SCH ×2 (07:50→21:26)
[2020-12-23] MEDS: Atorvastatin Calcium 10 MG TAB PO SCH (07:51)
[2020-12-23] MEDS ORDERED: Furosemide 40 MG/4 ML VIAL SLOW IVP SCH (10:15)
[2020-12-23] MEDS: cefTRIAXone\\ROCEPHIN 2 GM in Sodium Chloride 0.9% 100 ML IVPB SCH (12:11)
[2020-12-23] MEDS: Melatonin 3 MG TAB PO SCH (21:23)
[2020-12-23] MEDS: traMADol HCl 50 MG TAB PO PRN (21:25)
[2020-12-24] MEDS: Hydrocortisone Sod Succ/PF 100 mg/2 ml Vial IVP SCH ×2 (00:40→05:10)
[2020-12-24] MEDS: Acetaminophen 650 MG/20.3 ML UDCUP PO SCH ×5 (00:40→23:53)
[2020-12-24 04:36] LABS: #Lymphocytes 0.7 thou/uL (1.20-3.40); #Monocytes 0.6 thou/uL (0.11-0.59); #Neutrophils 6.9 thou/uL (1.40-6.50); %Basophils 0.2 % (0.0-1.0); %Eosinophils 0.2 % (0.0-10.0); %Lymphocytes 8.1 % (21.0-51.0); %Monocytes 6.8 % (0.0-10.0); %Neutrophils 84.6 % (42.0-75.0); Hemoglobin 8.3 g/dL (12.0-16.0); Mean Corpuscular HGB CONC 32.7 g/dL (32.0-36.0); Mean Corpuscular Hemoglobin 28.6 pg (27.0-31.0); Mean Corpuscular Volume 87.4 fL (78.0-98.0); Mean Platelet Volume 6.5 fL (7.4-10.4); Platelet Count 344 thou/uL (130-400); RBC Distribution Width 17.6 % (11.5-14.5); Red Blood Cell (RBC) Count 2.92 mill/uL (4.20-5.40); White Blood Cell (WBC) Count 8.1 thou/uL (4.8-10.8)
[2020-12-24] MEDS: Cyclobenzaprine 10 MG TAB PO PRN (05:10)
[2020-12-24] MEDS: Levothyroxine Sodium 25 MCG TAB PO SCH (05:10)
[2020-12-24 06:02] LABS: Anion Gap 12 mmol/L (10-20); BUN (Urea Nitrogen) 27 mg/dL (9.8-20.1); Calc. Creatinine Clearance 53 mL/min (70-130); Calcium 8.5 mg/dL (7.8-10.44); Carbon Dioxide 27 mmol/L (23-31); Chloride 104 mmol/L (98-107); Glucose 147 mg/dL (83-110); Magnesium 1.9 mg/dL (1.6-2.6); Phosphorus 2.6 mg/dL (2.3-4.7); Potassium 3.8 mmol/L (3.5-5.1); Sodium 139 mmol/L (136-145)
[2020-12-24] MEDS ORDERED: PHOS-NAK 1 PKT PACK PO SCH (07:45)
[2020-12-24] MEDS ORDERED: Potassium Chloride 20 MEQ TAB PO SCH (07:45)
[2020-12-24] MEDS ORDERED: Magnesium 2 GM/50 ML 2 GM in Premix Bag 1 BAG IVPB SCH (07:45)
[2020-12-24] MEDS: Fish Oil 1,000 MG CAP PO SCH (09:28)
[2020-12-24] MEDS: Ascorbic Acid 500 mg Chewable Tablet PO SCH (09:28)
[2020-12-24] MEDS: Carvedilol 3.125 MG TAB PO SCH ×2 (09:28→21:30)
[2020-12-24] MEDS: Senokot S 8.6-50 MG TAB PO SCH ×2 (09:28→22:22)
[2020-12-24] MEDS: Gabapentin 300 MG CAP PO SCH ×3 (09:28→21:30)
[2020-12-24] MEDS: Saccharomyces boulardii 250 MG CAP PO SCH (09:29)
[2020-12-24] MEDS: Citalopram 20 MG TAB PO SCH (09:29)
[2020-12-24] MEDS: Polyethylene Glycol 3350 17 GM Packet PO SCH (09:29)
[2020-12-24] MEDS: Clopidogrel Bisulfate 75 MG TAB PO SCH (09:29)
[2020-12-24] MEDS: Famotidine 20 MG TAB PO SCH (09:29)
[2020-12-24] MEDS: Furosemide 20 MG TAB PO SCH (09:29)
[2020-12-24] MEDS: Atorvastatin Calcium 10 MG TAB PO SCH (09:29)
[2020-12-24] MEDS: cefTRIAXone\\ROCEPHIN 2 GM in Sodium Chloride 0.9% 100 ML IVPB SCH (12:18)
[2020-12-24] MEDS: hydrALAZINE 20 MG/ML VIAL SLOW IVP PRN (12:18)
[2020-12-24] MEDS: Melatonin 3 MG TAB PO SCH (21:30)
[2020-12-24] MEDS: traMADol HCl 50 MG TAB PO PRN (21:31)
[2020-12-24] MEDS ORDERED: GUAIFENESIN SF SOLN 200 MG/10 ML UDCUP PO SCH (23:45)
[2020-12-25 04:47] LABS: #Eosinphils 0.3 thou/uL (0.0-0.7); #Lymphocytes 0.9 thou/uL (1.20-3.40); #Neutrophils 8.9 thou/uL (1.40-6.50); %Basophils 0.3 % (0.0-1.0); %Eosinophils 2.8 % (0.0-10.0); %Lymphocytes 8.4 % (21.0-51.0); %Monocytes 9.3 % (0.0-10.0); %Neutrophils 79.3 % (42.0-75.0); Hemoglobin 9.4 g/dL (12.0-16.0); Mean Corpuscular HGB CONC 32.7 g/dL (32.0-36.0); Mean Corpuscular Hemoglobin 28.7 pg (27.0-31.0); Mean Corpuscular Volume 87.6 fL (78.0-98.0); Mean Platelet Volume 6.4 fL (7.4-10.4); Platelet Count 396 thou/uL (130-400); RBC Distribution Width 17.6 % (11.5-14.5); Red Blood Cell (RBC) Count 3.29 mill/uL (4.20-5.40); White Blood Cell (WBC) Count 11.2 thou/uL (4.8-10.8)
[2020-12-25 05:10] LABS: Anion Gap 12 mmol/L (10-20); BUN (Urea Nitrogen) 18 mg/dL (9.8-20.1); Calc. Creatinine Clearance 56 mL/min (70-130); Calcium 8.6 mg/dL (7.8-10.44); Carbon Dioxide 28 mmol/L (23-31); Chloride 105 mmol/L (98-107); Glucose 149 mg/dL (83-110); Phosphorus 2.2 mg/dL (2.3-4.7); Potassium 3.9 mmol/L (3.5-5.1); Sodium 141 mmol/L (136-145)
[2020-12-25] MEDS: Acetaminophen 650 MG/20.3 ML UDCUP PO SCH ×3 (06:29→18:17)
[2020-12-25] MEDS: Levothyroxine Sodium 25 MCG TAB PO SCH (06:29)
[2020-12-25] MEDS ORDERED: Potassium Phosphate 30 MMOL in Sodium Chloride 0.9% 250 ML 250 ML IVPB SCH (08:15)
[2020-12-25] MEDS: Carvedilol 3.125 MG TAB PO SCH ×2 (09:24→21:44)
[2020-12-25] MEDS: Famotidine 20 MG TAB PO SCH (09:24)
[2020-12-25] MEDS: Citalopram 20 MG TAB PO SCH (09:24)
[2020-12-25] MEDS: Atorvastatin Calcium 10 MG TAB PO SCH (09:24)
[2020-12-25] MEDS: Furosemide 20 MG TAB PO SCH (09:24)
[2020-12-25] MEDS: Gabapentin 300 MG CAP PO SCH ×3 (09:24→21:43)
[2020-12-25] MEDS: Clopidogrel Bisulfate 75 MG TAB PO SCH (09:24)
[2020-12-25] MEDS: Fish Oil 1,000 MG CAP PO SCH (09:26)
[2020-12-25] MEDS: Ascorbic Acid 500 mg Chewable Tablet PO SCH (09:26)
[2020-12-25] MEDS: Saccharomyces boulardii 250 MG CAP PO SCH (09:26)
[2020-12-25] MEDS: Polyethylene Glycol 3350 17 GM Packet PO SCH (09:27)
[2020-12-25] MEDS: Senokot S 8.6-50 MG TAB PO SCH ×2 (09:28→19:18)
[2020-12-25] MEDS: traMADol HCl 50 MG TAB PO PRN ×2 (09:46→16:13)
[2020-12-25] MEDS: cefTRIAXone\\ROCEPHIN 2 GM in Sodium Chloride 0.9% 100 ML IVPB SCH (12:35)
[2020-12-25] MEDS: hydrALAZINE 20 MG/ML VIAL SLOW IVP PRN (13:07)
[2020-12-25] MEDS: Melatonin 3 MG TAB PO SCH (21:43)
[2020-12-26] MEDS: hydrALAZINE 20 MG/ML VIAL SLOW IVP PRN ×2 (00:36→05:27)
[2020-12-26] MEDS: Acetaminophen 650 MG/20.3 ML UDCUP PO SCH ×4 (00:44→17:55)
[2020-12-26 04:38] LABS: #Eosinphils 0.3 thou/uL (0.0-0.7); #Lymphocytes 1.6 thou/uL (1.20-3.40); #Monocytes 1.1 thou/uL (0.11-0.59); #Neutrophils 9.8 thou/uL (1.40-6.50); %Basophils 0.2 % (0.0-1.0); %Eosinophils 2.5 % (0.0-10.0); %Lymphocytes 12.4 % (21.0-51.0); %Monocytes 8.2 % (0.0-10.0); %Neutrophils 76.6 % (42.0-75.0); Hemoglobin 9.8 g/dL (12.0-16.0); Mean Corpuscular HGB CONC 33.1 g/dL (32.0-36.0); Mean Corpuscular Volume 87.4 fL (78.0-98.0); Mean Platelet Volume 6.3 fL (7.4-10.4); Platelet Count 396 thou/uL (130-400); RBC Distribution Width 17.8 % (11.5-14.5); Red Blood Cell (RBC) Count 3.37 mill/uL (4.20-5.40); White Blood Cell (WBC) Count 12.8 thou/uL (4.8-10.8)
[2020-12-26 05:29] LABS: Anion Gap 12 mmol/L (10-20); BUN (Urea Nitrogen) 16 mg/dL (9.8-20.1); Calc. Creatinine Clearance 58 mL/min (70-130); Calcium 8.7 mg/dL (7.8-10.44); Carbon Dioxide 29 mmol/L (23-31); Chloride 103 mmol/L (98-107); Glucose 142 mg/dL (83-110); Magnesium 1.8 mg/dL (1.6-2.6); Phosphorus 2.9 mg/dL (2.3-4.7); Sodium 140 mmol/L (136-145)
[2020-12-26] MEDS: Levothyroxine Sodium 25 MCG TAB PO SCH (05:30)
[2020-12-26] MEDS ORDERED: Lisinopril 20 MG TAB PO SCH (09:15)
[2020-12-26] MEDS: Famotidine 20 MG TAB PO SCH (10:02)
[2020-12-26] MEDS: Gabapentin 300 MG CAP PO SCH ×3 (10:02→21:16)
[2020-12-26] MEDS: Ascorbic Acid 500 mg Chewable Tablet PO SCH (10:02)
[2020-12-26] MEDS: Fish Oil 1,000 MG CAP PO SCH (10:02)
[2020-12-26] MEDS: Citalopram 20 MG TAB PO SCH (10:03)
[2020-12-26] MEDS: Carvedilol 3.125 MG TAB PO SCH ×2 (10:03→21:15)
[2020-12-26] MEDS: Atorvastatin Calcium 10 MG TAB PO SCH (10:03)
[2020-12-26] MEDS: Clopidogrel Bisulfate 75 MG TAB PO SCH (10:03)
[2020-12-26] MEDS: Furosemide 20 MG TAB PO SCH (10:03)
[2020-12-26] MEDS: Saccharomyces boulardii 250 MG CAP PO SCH (10:03)
[2020-12-26] MEDS: Polyethylene Glycol 3350 17 GM Packet PO SCH (10:03)
[2020-12-26] MEDS: Senokot S 8.6-50 MG TAB PO SCH ×2 (10:04→21:17)
[2020-12-26] MEDS: cefTRIAXone\\ROCEPHIN 2 GM in Sodium Chloride 0.9% 100 ML IVPB SCH (12:41)
[2020-12-26] MEDS: Melatonin 3 MG TAB PO SCH (21:15)
[2020-12-26] MEDS: traMADol HCl 50 MG TAB PO PRN (21:25)
[2020-12-27] MEDS: Acetaminophen 650 MG/20.3 ML UDCUP PO SCH ×3 (01:00→12:40)
[2020-12-27 05:51] LABS: #Eosinphils 0.3 thou/uL (0.0-0.7); #Lymphocytes 1.3 thou/uL (1.20-3.40); #Monocytes 0.9 thou/uL (0.11-0.59); #Neutrophils 10.6 thou/uL (1.40-6.50); %Basophils 0.4 % (0.0-1.0); %Eosinophils 2.1 % (0.0-10.0); %Lymphocytes 9.6 % (21.0-51.0); %Monocytes 6.6 % (0.0-10.0); %Neutrophils 81.4 % (42.0-75.0); Hemoglobin 9.1 g/dL (12.0-16.0); Mean Corpuscular HGB CONC 32.7 g/dL (32.0-36.0); Mean Corpuscular Hemoglobin 28.5 pg (27.0-31.0); Mean Platelet Volume 6.4 fL (7.4-10.4); Platelet Count 396 thou/uL (130-400); RBC Distribution Width 17.9 % (11.5-14.5); Red Blood Cell (RBC) Count 3.21 mill/uL (4.20-5.40); White Blood Cell (WBC) Count 13.1 thou/uL (4.8-10.8)
[2020-12-27 06:12] LABS: Anion Gap 13 mmol/L (10-20); BUN (Urea Nitrogen) 14 mg/dL (9.8-20.1); Calc. Creatinine Clearance 58 mL/min (70-130); Calcium 8.5 mg/dL (7.8-10.44); Carbon Dioxide 28 mmol/L (23-31); Chloride 102 mmol/L (98-107); Glucose 107 mg/dL (83-110); Magnesium 1.8 mg/dL (1.6-2.6); Phosphorus 3.1 mg/dL (2.3-4.7); Potassium 3.4 mmol/L (3.5-5.1); Sodium 140 mmol/L (136-145)
[2020-12-27] MEDS: Levothyroxine Sodium 25 MCG TAB PO SCH (06:49)
[2020-12-27] MEDS ORDERED: Magnesium 2 GM/50 ML 2 GM in Premix Bag 1 BAG IVPB SCH (08:00)
[2020-12-27] MEDS ORDERED: Potassium Phosphate 30 MMOL, Magnesium Sulfate 2 GM in Sodium Chloride 0.9% 250 ML 250 ML IVPB SCH (08:00)
[2020-12-27] MEDS ORDERED: Lisinopril 20 MG TAB PO SCH ×2 (09:00)
[2020-12-27] MEDS: Furosemide 20 MG TAB PO SCH (09:17)
[2020-12-27] MEDS: Gabapentin 300 MG CAP PO SCH ×3 (09:17→20:14)
[2020-12-27] MEDS: Carvedilol 3.125 MG TAB PO SCH ×2 (09:17→20:15)
[2020-12-27] MEDS: Saccharomyces boulardii 250 MG CAP PO SCH (09:17)
[2020-12-27] MEDS: Fish Oil 1,000 MG CAP PO SCH (09:17)
[2020-12-27] MEDS: Atorvastatin Calcium 10 MG TAB PO SCH (09:17)
[2020-12-27] MEDS: Ascorbic Acid 500 mg Chewable Tablet PO SCH (09:18)
[2020-12-27] MEDS: Citalopram 20 MG TAB PO SCH (09:18)
[2020-12-27] MEDS: Famotidine 20 MG TAB PO SCH (09:18)
[2020-12-27] MEDS: Clopidogrel Bisulfate 75 MG TAB PO SCH (09:22)
[2020-12-27] MEDS: Polyethylene Glycol 3350 17 GM Packet PO SCH (09:22)
[2020-12-27] MEDS: Senokot S 8.6-50 MG TAB PO SCH ×2 (09:23→20:14)
[2020-12-27] MEDS: cefTRIAXone\\ROCEPHIN 2 GM in Sodium Chloride 0.9% 100 ML IVPB SCH (12:41)
[2020-12-27 16:02] VITALS: BMI 26.8
[2020-12-27] MEDS: Acetaminophen 500 MG TAB PO SCH (18:21)
[2020-12-27] MEDS: traMADol HCl 50 MG TAB PO PRN (18:22)
[2020-12-27] MEDS: Melatonin 3 MG TAB PO SCH (20:15)
[2020-12-28] MEDS: Acetaminophen 500 MG TAB PO SCH ×4 (00:45→18:40)
[2020-12-28] MEDS: Levothyroxine Sodium 25 MCG TAB PO SCH (05:47)
[2020-12-28 06:13] LABS: #Basophils 0.1 thou/uL (0.0-0.2); #Eosinphils 0.5 thou/uL (0.0-0.7); #Lymphocytes 1.7 thou/uL (1.20-3.40); #Monocytes 0.9 thou/uL (0.11-0.59); #Neutrophils 10.2 thou/uL (1.40-6.50); %Basophils 0.5 % (0.0-1.0); %Eosinophils 3.6 % (0.0-10.0); %Lymphocytes 12.5 % (21.0-51.0); %Monocytes 6.7 % (0.0-10.0); %Neutrophils 76.6 % (42.0-75.0); Hemoglobin 9.4 g/dL (12.0-16.0); Mean Corpuscular HGB CONC 33.1 g/dL (32.0-36.0); Mean Corpuscular Hemoglobin 28.7 pg (27.0-31.0); Mean Corpuscular Volume 86.9 fL (78.0-98.0); Mean Platelet Volume 6.2 fL (7.4-10.4); Platelet Count 443 thou/uL (130-400); Red Blood Cell (RBC) Count 3.26 mill/uL (4.20-5.40); White Blood Cell (WBC) Count 13.3 thou/uL (4.8-10.8)
[2020-12-28] MEDS: Fish Oil 1,000 MG CAP PO SCH (08:31)
[2020-12-28] MEDS: Senokot S 8.6-50 MG TAB PO SCH ×2 (08:31→21:48)
[2020-12-28] MEDS: Ascorbic Acid 500 mg Chewable Tablet PO SCH (08:31)
[2020-12-28] MEDS: Saccharomyces boulardii 250 MG CAP PO SCH (08:31)
[2020-12-28] MEDS: Famotidine 20 MG TAB PO SCH (08:32)
[2020-12-28] MEDS: Carvedilol 3.125 MG TAB PO SCH ×2 (08:32→21:49)
[2020-12-28] MEDS: traMADol HCl 50 MG TAB PO PRN ×2 (08:32→18:40)
[2020-12-28] MEDS: Gabapentin 300 MG CAP PO SCH ×3 (08:32→21:49)
[2020-12-28] MEDS: Atorvastatin Calcium 10 MG TAB PO SCH (08:33)
[2020-12-28] MEDS: Citalopram 20 MG TAB PO SCH (08:33)
[2020-12-28] MEDS: Clopidogrel Bisulfate 75 MG TAB PO SCH (08:33)
[2020-12-28] MEDS: Polyethylene Glycol 3350 17 GM Packet PO SCH (08:33)
[2020-12-28] MEDS: Furosemide 20 MG TAB PO SCH (08:33)
[2020-12-28] MEDS: Cyclobenzaprine 10 MG TAB PO PRN (10:20)
[2020-12-28] MEDS ORDERED: traMADol HCl 50 MG TAB PO SCH (10:45)
[2020-12-28] MEDS: cefTRIAXone\\ROCEPHIN 2 GM in Sodium Chloride 0.9% 100 ML IVPB SCH (12:43)
[2020-12-28] MEDS: Acetaminophen 650 MG/20.3 ML UDCUP PO SCH (18:38)
[2020-12-28] MEDS: Melatonin 3 MG TAB PO SCH (21:50)
[2020-12-29] MEDS: Acetaminophen 500 MG TAB PO SCH ×4 (00:41→18:02)
[2020-12-29] MEDS: Levothyroxine Sodium 25 MCG TAB PO SCH (06:51)
[2020-12-29] MEDS: Senokot S 8.6-50 MG TAB PO SCH ×2 (08:40→21:20)
[2020-12-29] MEDS: Fish Oil 1,000 MG CAP PO SCH (08:40)
[2020-12-29] MEDS: Polyethylene Glycol 3350 17 GM Packet PO SCH (08:40)
[2020-12-29] MEDS: Citalopram 20 MG TAB PO SCH (08:41)
[2020-12-29] MEDS: Saccharomyces boulardii 250 MG CAP PO SCH (08:41)
[2020-12-29] MEDS: Gabapentin 300 MG CAP PO SCH ×3 (08:41→21:22)
[2020-12-29] MEDS: Carvedilol 3.125 MG TAB PO SCH ×2 (08:41→21:22)
[2020-12-29] MEDS: Furosemide 20 MG TAB PO SCH (08:41)
[2020-12-29] MEDS: Atorvastatin Calcium 10 MG TAB PO SCH (08:41)
[2020-12-29] MEDS: Ascorbic Acid 500 mg Chewable Tablet PO SCH (08:41)
[2020-12-29] MEDS: Clopidogrel Bisulfate 75 MG TAB PO SCH (08:42)
[2020-12-29] MEDS: cefTRIAXone\\ROCEPHIN 2 GM in Sodium Chloride 0.9% 100 ML IVPB SCH (13:30)
[2020-12-29] MEDS: traMADol HCl 50 MG TAB PO PRN (13:31)
[2020-12-29] MEDS: Melatonin 3 MG TAB PO SCH (21:21)
[2020-12-30] MEDS: Acetaminophen 500 MG TAB PO SCH ×2 (00:56→05:04)
[2020-12-30] MEDS: traMADol HCl 50 MG TAB PO PRN ×2 (03:06→08:48)
[2020-12-30] MEDS: Levothyroxine Sodium 25 MCG TAB PO SCH (05:05)
[2020-12-30] MEDS: Cyclobenzaprine 10 MG TAB PO PRN (05:15)
[2020-12-30] MEDS: Saccharomyces boulardii 250 MG CAP PO SCH (08:45)
[2020-12-30] MEDS: Fish Oil 1,000 MG CAP PO SCH (08:46)
[2020-12-30] MEDS: Gabapentin 300 MG CAP PO SCH (08:46)
[2020-12-30] MEDS: Atorvastatin Calcium 10 MG TAB PO SCH (08:47)
[2020-12-30] MEDS: Citalopram 20 MG TAB PO SCH (08:47)
[2020-12-30] MEDS: Clopidogrel Bisulfate 75 MG TAB PO SCH (08:47)
[2020-12-30] MEDS: Carvedilol 3.125 MG TAB PO SCH (08:47)
[2020-12-30] MEDS: Furosemide 20 MG TAB PO SCH (08:47)
[2020-12-30] MEDS: Ascorbic Acid 500 mg Chewable Tablet PO SCH (08:47)
[2020-12-30] MEDS: Polyethylene Glycol 3350 17 GM Packet PO SCH (08:54)
[2020-12-30] MEDS: Senokot S 8.6-50 MG TAB PO SCH (08:55)
[2020-12-30 11:55] VITALS: BP 143/80; TEMP 98
== END 2020-12-30 14:48 | DRG 199 ==
LOC: SURG B 01:03 → OBSVTOIN 13:30 → CCU 12-22 13:50 → SURG A 12-23 18:28
PROVIDERS: ADMIT Surgery; ATTEND Surgery
PROC: 0W9B00Z Drainage of Left Pleural Cavity with Drainage Device, Open Approach (ICD-10-PCS; principal; 2020-12-20)
PROC: 02HV33Z Insertion of Infusion Device into Superior Vena Cava, Percutaneous Approach (ICD-10-PCS; 2020-12-22)
PROC: 3E033XZ Introduction of Vasopressor into Peripheral Vein, Percutaneous Approach (ICD-10-PCS; 2020-12-22)
DX: S27.0XXA Traumatic pneumothorax, initial encounter (principal); A41.9 Sepsis, unspecified organism; R65.21 Severe sepsis with septic shock; J96.02 Acute respiratory failure with hypercapnia; N39.0 Urinary tract infection, site not specified; S22.42XA Multiple fractures of ribs, left side, initial encounter for closed fracture; E27.40 Unspecified adrenocortical insufficiency; J98.11 Atelectasis; W18.30XA Fall on same level, unspecified, initial encounter; I10 Essential (primary) hypertension; I25.10 Atherosclerotic heart disease of native coronary artery without angina pectoris; F41.9 Anxiety disorder, unspecified; Z96.653 Presence of artificial knee joint, bilateral; F32.A Depression, unspecified; R13.10 Dysphagia, unspecified; E78.5 Hyperlipidemia, unspecified; Y92.009 Unspecified place in unspecified non-institutional (private) residence as the place of occurrence of the external cause
CPT/HCPCS: 32551; 36415; 36416; 36600; 71045; 74018; 74230; 80048; 81001; 82533; 82805; 83735; 83880; 84100; 84484; 85025; 87077; 87086; 87186; 93005; 93010; 94640; 94660; 96374; G0378; J0360; J0696; J1720; J1885; J1940; J2001; J3475; J3490; J7050; J7620

== ENCOUNTER 2021-01-28 16:15 | Inpatient (IN) | payer MEDICARE ==
[2021-01-28 17:55] LABS: #Eosinphils 0.1 thou/uL (0.0-0.7); #Lymphocytes 1.1 thou/uL (1.20-3.40); #Monocytes 0.7 thou/uL (0.11-0.59); #Neutrophils 9.3 thou/uL (1.40-6.50); %Basophils 0.3 % (0.0-1.0); %Eosinophils 1.2 % (0.0-10.0); %Lymphocytes 9.5 % (21.0-51.0); %Monocytes 5.9 % (0.0-10.0); %Neutrophils 83.1 % (42.0-75.0); Hemoglobin 11.2 g/dL (12.0-16.0); Mean Corpuscular HGB CONC 33.2 g/dL (32.0-36.0); Mean Corpuscular Hemoglobin 30.1 pg (27.0-31.0); Mean Corpuscular Volume 90.6 fL (78.0-98.0); Platelet Count 364 thou/uL (130-400); RBC Distribution Width 16.7 % (11.5-14.5); Red Blood Cell (RBC) Count 3.71 mill/uL (4.20-5.40); White Blood Cell (WBC) Count 11.1 thou/uL (4.8-10.8)
[2021-01-28 18:20] LABS: ALT (SGPT) 15 U/L (8-55); AST (SGOT) 21 U/L (5-34); Albumin 3.8 g/dL (3.4-4.8); Alkaline Phosphatase 116 U/L (40-110); Anion Gap 14 mmol/L (10-20); BUN (Urea Nitrogen) 13 mg/dL (9.8-20.1); Bilirubin, Total 0.5 mg/dL (0.2-1.2); CK (CPK) 93 U/L (29-168); Calc. Creatinine Clearance 0 mL/min (70-130); Calcium 9.8 mg/dL (7.8-10.44); Carbon Dioxide 28 mmol/L (23-31); Chloride 93 mmol/L (98-107); Globulin 3.5 g/dL (2.4-3.5); Glucose 117 mg/dL (83-110); Magnesium 1.6 mg/dL (1.6-2.6); Potassium 4.6 mmol/L (3.5-5.1); Protein, Total 7.3 g/dL (5.8-8.1); Sodium 130 mmol/L (136-145)
[2021-01-28 19:15] LABS: Bacteria/HPF 4+ HPF (None Seen); Bilirubin Negative (Negative); Blood, Urine Negative (Negative); Clarity Clear (Clear); Glucose, Urine (Dipstick) Normal (Negative); Ketone, Urine Trace mg/dL (Negative); Leukocyte Negative Leu/uL (Negative); Nitrite 1+ (Negative); Protein, Urine (Dipstick) 30 mg/dL (Neg-Trace); RBC/HPF 0-3 HPF (0-3); Renal Epithelial 0-3 HPF (None Seen); Squamous Epithelial None Seen HPF (0-3); Urobilinogen Normal mg/dL (Less than 2); WBC/HPF 0-3 HPF (0-3)
[2021-01-28] MEDS ORDERED: cefTRIAXone\\ROCEPHIN 2 GM VIAL ONE (20:33)
[2021-01-28] MEDS ORDERED: traMADol HCl 50 MG TAB ONE (21:07)
[2021-01-28] MEDS ORDERED: Ondansetron PF 4 MG/2 ML Vial IVP PRN (22:53)
[2021-01-28] MEDS ORDERED: Acetaminophen 650 MG Suppository PR PRN (22:53)
[2021-01-28] MEDS ORDERED: Ondansetron ODT 4 MG TAB PO PRN (22:53)
[2021-01-28] MEDS ORDERED: Acetaminophen 325 MG TAB PO PRN (22:53)
[2021-01-28] MEDS ORDERED: Gabapentin 300 MG CAP PO SCH (23:30)
[2021-01-28] MEDS ORDERED: Melatonin 3 MG TAB PO SCH (23:30)
[2021-01-28] MEDS ORDERED: Carvedilol 3.125 MG TAB PO SCH (23:30)
[2021-01-28] MEDS ORDERED: traMADol HCl 50 MG TAB PO SCH (23:30)
[2021-01-29 00:19] VITALS: BMI 25.0
[2021-01-29 06:57] LABS: #Eosinphils 0.4 thou/uL (0.0-0.7); #Lymphocytes 1.1 thou/uL (1.20-3.40); #Monocytes 0.6 thou/uL (0.11-0.59); %Basophils 0.4 % (0.0-1.0); %Eosinophils 4.1 % (0.0-10.0); %Lymphocytes 11.9 % (21.0-51.0); %Monocytes 6.5 % (0.0-10.0); Hemoglobin 9.9 g/dL (12.0-16.0); Mean Corpuscular HGB CONC 32.7 g/dL (32.0-36.0); Mean Corpuscular Hemoglobin 29.4 pg (27.0-31.0); Mean Corpuscular Volume 89.9 fL (78.0-98.0); Platelet Count 330 thou/uL (130-400); RBC Distribution Width 16.7 % (11.5-14.5); Red Blood Cell (RBC) Count 3.36 mill/uL (4.20-5.40); White Blood Cell (WBC) Count 9.1 thou/uL (4.8-10.8)
[2021-01-29 07:19] LABS: Anion Gap 12 mmol/L (10-20); BUN (Urea Nitrogen) 12 mg/dL (9.8-20.1); Calc. Creatinine Clearance 48 mL/min (70-130); Calcium 8.8 mg/dL (7.8-10.44); Carbon Dioxide 26 mmol/L (23-31); Chloride 97 mmol/L (98-107); Glucose 105 mg/dL (83-110); Potassium 3.9 mmol/L (3.5-5.1); Sodium 131 mmol/L (136-145)
[2021-01-29] MEDS: Enoxaparin Sodium 40 MG/0.4 ML SYRINGE SC SCH (08:07)
[2021-01-29 10:10] LABS: Iron 18 ug/dL (50-170); Iron Binding Capacity, Total 319 mcg/dL (265-497)
[2021-01-29] MEDS ORDERED: traMADol HCl 50 MG TAB PO PRN (10:15)
[2021-01-29 12:36] LABS: SARS-CoV-2 PCR by NAA Not Detected (NotDetected)
[2021-01-29] MEDS ORDERED: traMADol HCl 50 MG TAB PO SCH (13:15)
[2021-01-29] MEDS ORDERED: Famotidine 20 MG TAB PO SCH (21:00)
[2021-01-29] MEDS: Docusate 100 MG CAP PO SCH (21:06)
[2021-01-29] MEDS: Melatonin 3 MG TAB PO SCH (21:06)
[2021-01-29] MEDS: Gabapentin 300 MG CAP PO SCH (21:07)
[2021-01-29] MEDS: traMADol HCl 50 MG TAB PO PRN (21:08)
[2021-01-29] MEDS: cefTRIAXone\\ROCEPHIN 1 GM in Sodium Chloride 0.9% 100 ML IVPB SCH (23:35)
[2021-01-30 06:47] LABS: #Eosinphils 0.5 thou/uL (0.0-0.7); #Lymphocytes 1.1 thou/uL (1.20-3.40); #Monocytes 0.8 thou/uL (0.11-0.59); #Neutrophils 5.4 thou/uL (1.40-6.50); %Basophils 0.4 % (0.0-1.0); %Eosinophils 6.1 % (0.0-10.0); %Lymphocytes 13.8 % (21.0-51.0); %Monocytes 10.8 % (0.0-10.0); %Neutrophils 68.9 % (42.0-75.0); Hemoglobin 9.4 g/dL (12.0-16.0); Mean Corpuscular HGB CONC 33.2 g/dL (32.0-36.0); Mean Corpuscular Hemoglobin 29.6 pg (27.0-31.0); Mean Corpuscular Volume 89.2 fL (78.0-98.0); Platelet Count 290 thou/uL (130-400); RBC Distribution Width 16.5 % (11.5-14.5); Red Blood Cell (RBC) Count 3.18 mill/uL (4.20-5.40); White Blood Cell (WBC) Count 7.8 thou/uL (4.8-10.8)
[2021-01-30 07:06] LABS: Anion Gap 11 mmol/L (10-20); BUN (Urea Nitrogen) 12 mg/dL (9.8-20.1); Calc. Creatinine Clearance 52 mL/min (70-130); Calcium 8.4 mg/dL (7.8-10.44); Carbon Dioxide 26 mmol/L (23-31); Chloride 95 mmol/L (98-107); Glucose 104 mg/dL (83-110); Potassium 3.8 mmol/L (3.5-5.1); Sodium 128 mmol/L (136-145)
[2021-01-30] MEDS: traMADol HCl 50 MG TAB PO PRN ×2 (09:41→20:55)
[2021-01-30] MEDS: Enoxaparin Sodium 40 MG/0.4 ML SYRINGE SC SCH (10:52)
[2021-01-30] MEDS: Gabapentin 300 MG CAP PO SCH ×2 (11:09→20:54)
[2021-01-30] MEDS: Ferrous Sulfate 325 MG TAB PO SCH (11:10)
[2021-01-30] MEDS: Docusate 100 MG CAP PO SCH ×2 (11:10→20:54)
[2021-01-30] MEDS: Famotidine 20 MG TAB PO SCH (20:54)
[2021-01-30] MEDS: Melatonin 3 MG TAB PO SCH (20:55)
[2021-01-30] MEDS: cefTRIAXone\\ROCEPHIN 1 GM in Sodium Chloride 0.9% 100 ML IVPB SCH (23:27)
[2021-01-31] MEDS: Gabapentin 300 MG CAP PO SCH ×2 (08:13→23:17)
[2021-01-31] MEDS: Ferrous Sulfate 325 MG TAB PO SCH (08:13)
[2021-01-31] MEDS: Citalopram 20 MG TAB PO SCH (11:17)
[2021-01-31] MEDS: traMADol HCl 50 MG TAB PO PRN (11:18)
[2021-01-31] MEDS: Cyanocobalamin (Vitamin B-12) 1,000 MCG TAB PO SCH (11:18)
[2021-01-31] MEDS: Aspirin Chewable 81 MG TAB PO SCH (11:18)
[2021-01-31] MEDS: Atorvastatin Calcium 10 MG TAB PO SCH (11:18)
[2021-01-31] MEDS: Ascorbic Acid 500 mg Chewable Tablet PO SCH (11:18)
[2021-01-31] MEDS: Furosemide 40 MG TAB PO SCH (11:19)
[2021-01-31] MEDS: Clopidogrel Bisulfate 75 MG TAB PO SCH (11:19)
[2021-01-31] MEDS: Enoxaparin Sodium 40 MG/0.4 ML SYRINGE SC SCH (11:22)
[2021-01-31] MEDS: Pilocarpine 5 MG TAB PO SCH ×3 (11:22→23:17)
[2021-01-31] MEDS: Carvedilol 3.125 MG TAB PO SCH ×2 (11:22→20:29)
[2021-01-31] MEDS: Docusate 100 MG CAP PO SCH ×2 (11:23→20:27)
[2021-01-31] MEDS: Calcium Carbonate 500 MG TAB PO SCH (16:02)
[2021-01-31] MEDS: Famotidine 20 MG TAB PO SCH (20:28)
[2021-01-31] MEDS: Melatonin 3 MG TAB PO SCH (23:19)
[2021-01-31] MEDS: cefTRIAXone\\ROCEPHIN 1 GM in Sodium Chloride 0.9% 100 ML IVPB SCH (23:22)
[2021-02-01] MEDS: traMADol HCl 50 MG TAB PO PRN (00:40)
[2021-02-01] MEDS: Levothyroxine Sodium 25 MCG TAB PO SCH (05:31)
[2021-02-01] MEDS: Gabapentin 300 MG CAP PO SCH ×2 (08:11→20:41)
[2021-02-01] MEDS: Cyanocobalamin (Vitamin B-12) 1,000 MCG TAB PO SCH (08:12)
[2021-02-01] MEDS: Clopidogrel Bisulfate 75 MG TAB PO SCH (08:12)
[2021-02-01] MEDS: Ferrous Sulfate 325 MG TAB PO SCH (08:12)
[2021-02-01] MEDS: Citalopram 20 MG TAB PO SCH (08:12)
[2021-02-01] MEDS: Aspirin Chewable 81 MG TAB PO SCH (08:12)
[2021-02-01] MEDS: Ascorbic Acid 500 mg Chewable Tablet PO SCH (08:12)
[2021-02-01] MEDS: Cholecalciferol 1,000 UNITS (25 MCG) TAB PO SCH (08:12)
[2021-02-01] MEDS: Atorvastatin Calcium 10 MG TAB PO SCH (08:12)
[2021-02-01] MEDS: Docusate 100 MG CAP PO SCH ×2 (08:13→20:41)
[2021-02-01] MEDS: Carvedilol 3.125 MG TAB PO SCH ×2 (08:13→20:42)
[2021-02-01] MEDS: Pilocarpine 5 MG TAB PO SCH ×3 (08:13→20:42)
[2021-02-01] MEDS: Calcium Carbonate 500 MG TAB PO SCH (08:13)
[2021-02-01] MEDS: Furosemide 40 MG TAB PO SCH (08:14)
[2021-02-01] MEDS: Enoxaparin Sodium 40 MG/0.4 ML SYRINGE SC SCH (08:14)
[2021-02-01 11:18] LABS: Anion Gap 12 mmol/L (10-20); BUN (Urea Nitrogen) 12 mg/dL (9.8-20.1); Calc. Creatinine Clearance 46 mL/min (70-130); Calcium 8.6 mg/dL (7.8-10.44); Carbon Dioxide 30 mmol/L (23-31); Chloride 91 mmol/L (98-107); Glucose 112 mg/dL (83-110); Potassium 4.6 mmol/L (3.5-5.1); Sodium 128 mmol/L (136-145)
[2021-02-01] MEDS: Famotidine 20 MG TAB PO SCH (20:41)
[2021-02-01] MEDS: Melatonin 3 MG TAB PO SCH (20:45)
[2021-02-02] MEDS: traMADol HCl 50 MG TAB PO PRN ×3 (00:03→23:12)
[2021-02-02] MEDS: cefTRIAXone\\ROCEPHIN 1 GM in Sodium Chloride 0.9% 100 ML IVPB SCH ×2 (00:04→23:22)
[2021-02-02] MEDS: Levothyroxine Sodium 25 MCG TAB PO SCH (06:21)
[2021-02-02] MEDS: Pilocarpine 5 MG TAB PO SCH ×3 (09:06→20:58)
[2021-02-02] MEDS: Enoxaparin Sodium 40 MG/0.4 ML SYRINGE SC SCH (09:06)
[2021-02-02] MEDS: Aspirin Chewable 81 MG TAB PO SCH (09:08)
[2021-02-02] MEDS: Ferrous Sulfate 325 MG TAB PO SCH (09:08)
[2021-02-02] MEDS: Cyanocobalamin (Vitamin B-12) 1,000 MCG TAB PO SCH (09:08)
[2021-02-02] MEDS: Carvedilol 3.125 MG TAB PO SCH ×2 (09:09→20:58)
[2021-02-02] MEDS: Gabapentin 300 MG CAP PO SCH ×2 (09:09→20:56)
[2021-02-02] MEDS: Citalopram 20 MG TAB PO SCH (09:09)
[2021-02-02] MEDS: Cholecalciferol 1,000 UNITS (25 MCG) TAB PO SCH (09:09)
[2021-02-02] MEDS: Docusate 100 MG CAP PO SCH ×2 (09:09→20:58)
[2021-02-02] MEDS: Clopidogrel Bisulfate 75 MG TAB PO SCH (09:09)
[2021-02-02] MEDS: Atorvastatin Calcium 10 MG TAB PO SCH (09:10)
[2021-02-02] MEDS: Calcium Carbonate 500 MG TAB PO SCH (09:10)
[2021-02-02] MEDS: Ascorbic Acid 500 mg Chewable Tablet PO SCH (09:10)
[2021-02-02] MEDS: Furosemide 40 MG TAB PO SCH (09:10)
[2021-02-02] MEDS: Famotidine 20 MG TAB PO SCH (20:58)
[2021-02-02] MEDS: Melatonin 3 MG TAB PO SCH (20:58)
[2021-02-03] MEDS: Levothyroxine Sodium 25 MCG TAB PO SCH (05:19)
[2021-02-03 07:25] LABS: #Eosinphils 0.4 thou/uL (0.0-0.7); #Lymphocytes 1.1 thou/uL (1.20-3.40); #Monocytes 0.8 thou/uL (0.11-0.59); %Basophils 0.6 % (0.0-1.0); %Eosinophils 5.6 % (0.0-10.0); %Lymphocytes 15.3 % (21.0-51.0); %Monocytes 11.1 % (0.0-10.0); %Neutrophils 67.5 % (42.0-75.0); Hemoglobin 10.3 g/dL (12.0-16.0); Mean Corpuscular HGB CONC 32.8 g/dL (32.0-36.0); Mean Corpuscular Hemoglobin 29.2 pg (27.0-31.0); Mean Corpuscular Volume 88.8 fL (78.0-98.0); Mean Platelet Volume 5.8 fL (7.4-10.4); Platelet Count 436 thou/uL (130-400); RBC Distribution Width 16.3 % (11.5-14.5); Red Blood Cell (RBC) Count 3.52 mill/uL (4.20-5.40); White Blood Cell (WBC) Count 7.5 thou/uL (4.8-10.8)
[2021-02-03 07:38] LABS: Anion Gap 12 mmol/L (10-20); BUN (Urea Nitrogen) 11 mg/dL (9.8-20.1); Calc. Creatinine Clearance 53 mL/min (70-130); Calcium 8.7 mg/dL (7.8-10.44); Carbon Dioxide 27 mmol/L (23-31); Chloride 92 mmol/L (98-107); Glucose 105 mg/dL (83-110); Potassium 4.4 mmol/L (3.5-5.1); Sodium 127 mmol/L (136-145)
[2021-02-03] MEDS ORDERED: Carvedilol 6.25 MG TAB PO SCH ×3 (08:00→17:00)
[2021-02-03 08:28] VITALS: BP 151/80; TEMP 97.8
[2021-02-03] MEDS: Cyanocobalamin (Vitamin B-12) 1,000 MCG TAB PO SCH (09:44)
[2021-02-03] MEDS: Citalopram 20 MG TAB PO SCH (09:44)
[2021-02-03] MEDS: Gabapentin 300 MG CAP PO SCH (09:44)
[2021-02-03] MEDS: Aspirin Chewable 81 MG TAB PO SCH (09:44)
[2021-02-03] MEDS: Cholecalciferol 1,000 UNITS (25 MCG) TAB PO SCH (09:45)
[2021-02-03] MEDS: Docusate 100 MG CAP PO SCH (09:45)
[2021-02-03] MEDS: Ascorbic Acid 500 mg Chewable Tablet PO SCH (09:45)
[2021-02-03] MEDS: Ferrous Sulfate 325 MG TAB PO SCH (09:45)
[2021-02-03] MEDS: Pilocarpine 5 MG TAB PO SCH (09:45)
[2021-02-03] MEDS: Calcium Carbonate 500 MG TAB PO SCH (09:45)
[2021-02-03] MEDS: Clopidogrel Bisulfate 75 MG TAB PO SCH (09:45)
[2021-02-03] MEDS: Atorvastatin Calcium 10 MG TAB PO SCH (09:45)
[2021-02-03] MEDS: Enoxaparin Sodium 40 MG/0.4 ML SYRINGE SC SCH (09:46)
[2021-02-03] MEDS: traMADol HCl 50 MG TAB PO PRN (09:48)
== END 2021-02-03 14:42 | DRG 690 ==
LOC: ERS 16:15 → T4-B 20:54
PROVIDERS: ADMIT Student in an Organized Health Care Education/Training Program; ATTEND Internal Medicine Geriatric Medicine
DX: N30.00 Acute cystitis without hematuria (principal); E87.1 Hypo-osmolality and hyponatremia; Z66 Do not resuscitate; Z20.822 Contact with and (suspected) exposure to COVID-19; I10 Essential (primary) hypertension; E78.5 Hyperlipidemia, unspecified; E78.00 Pure hypercholesterolemia, unspecified; M19.90 Unspecified osteoarthritis, unspecified site; J44.9 Chronic obstructive pulmonary disease, unspecified; R29.6 Repeated falls; D64.9 Anemia, unspecified; T50.1X5A Adverse effect of loop [high-ceiling] diuretics, initial encounter; Z96.642 Presence of left artificial hip joint; Z96.653 Presence of artificial knee joint, bilateral; Z90.49 Acquired absence of other specified parts of digestive tract; Z90.710 Acquired absence of both cervix and uterus; Z87.891 Personal history of nicotine dependence; Z88.5 Allergy status to narcotic agent; Z79.890 Hormone replacement therapy; Z79.899 Other long term (current) drug therapy; Z79.82 Long term (current) use of aspirin; Z79.51 Long term (current) use of inhaled steroids
CPT/HCPCS: 36415; 70450; 71045; 72072; 72100; 80048; 80053; 81003; 81015; 82550; 82728; 83540; 83550; 83735; 84443; 84484; 85025; 96365; J0696; J1650; J3490; Q0162; U0003; U0005